=== PATIENT | female | born 1985 | race Caucasian/White ===

== ENCOUNTER 2019-11-11 10:24 | Emergency (ER) | payer SELFPAY ==
[2019-11-11 10:27] VITALS: BP 138/91; PULSE 111; RESP 16; TEMP 37.7; O2SAT 96; BMI 37.8
--- NOTE | 2019-11-11 10:27 | W.ED.DENTAL ---
HPI - Dental/Oral General: Chief complaint: Dental/Oral Stated complaint: DENTAL PAIN Time Seen by Provider: 11/11/19 10:27 Source: patient Mode of arrival: ambulatory Limitations: no limitations History of Present Illness: HPI Narrative: Patient comes in today for complaints of right upper dental pain. Patient has some mild facial swelling. Patient appears well. Patient appears in mild pain. Review of Systems General: Reports: 10 or more systems reviewed and unremarkable except in HPI and below ENMT: Reports: dental pain PFSH ED PFSH: Social History Smoking and tobacco status: current every day smoker Physical Exam Const: COMMON NORMALS: no acute distress and patient oriented x3 GENERAL APPEARANCE: cooperative HENMT: COMMON NORMALS: normocephalic, TM's normal bilaterally and Normal external nose present HEAD & SCALP: normal to inspection and normocephalic NOSE: Normal external nose present TYMPANIC MEMBRANE: TM's normal bilaterally MOUTH: other (Dental abscess noted to the first molar upper right.) THROAT: posterior oropharynx normal Eye: GENERAL EYE: appearance normal, both eyes and all related structures Neck/C-Spine: COMMON NORMALS: full ROM Lymph: LYMPHATIC: no lymphadenopathy noted Chest: COMMONS NORMALS: normal inspection of the chest Resp: COMMON NORMALS: normal respiratory effort EFFORT & INSPECTION: Yes able to speak in complete sentences Cardio: COMMON NORMALS: regular rate and regular rhythm RATE: regular rate RHYTHM: regular rhythm GI: COMMON NORMALS: non-tender Back/Pelvis: COMMON NORMALS: thoracic and lumbar spine normal to inspection Extremity: COMMON NORMALS: normal to inspection Neuro: COMMON NORMALS: patient oriented x3 and moves all extremities Psych: COMMON NORMALS: mental status grossly normal and cooperative Skin: COMMON NORMALS: no rashes or lesions noted GENERAL SKIN EXAM: no rashes or lesions noted Course Vital Signs: Vital signs: Vital Signs Temperature 99.8 F H 11/11/19 10:27 Pulse Rate 111 H 11/11/19 10:27 Respiratory Rate 16 11/11/19 10:27 Blood Pressure 138/91 11/11/19 10:27 Pulse Oximetry 96 11/11/19 10:27 MDM - Dental/Oral MDM Narrative: Medical decision making narrative: Patient comes in today for complaints of dental pain. On exam patient has some swelling to the right facial cheek and some dental pain with an abscess to the right upper first molar area. Posterior pharynx is pink and moist with open airway. Differential diagnosis includes floor mouth cellulitis, dental abscess, dental won, dental decay. Reviewed exam with patient with recommendations for treatment and need for follow-up with dentist. Patient reported understanding and agreed to plan. Discharge Plan Discharge Patient Disposition: Home, Self-Care Clinical Impression: Dental abscess Condition: Stable Prescriptions: New Lidocaine Viscous 2 % solution 10 ml MUCOUS MEM Q3H PRN (Reason: pain) Qty: 100 RF: 0 amoxicillin 500 mg capsule 500 mg PO BID 10 Days Qty: 20 RF: 0 acetaminophen-codeine 300-30 mg tablet 1 tab PO Q8H PRN (Reason: pain) Qty: 10 RF: 0 Discharge Orders: Discharge Order (Routine); Ordered 11/11/19 Ordered By: Moshe Roach Discharge Diet: Usual diet Discharge Activity: Increase activity as tolerated Patient Instructions: Dental Abscess (ED) Activity Restrictions/Additional Instructions: Good oral care. Medications as directed. Follow-up with dentist. Return to the ER for worsening symptoms or new concerns. 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
[2019-11-11] MEDS: acetaminophen 500 mg Tablet 1000 MG PO (10:35)
[2019-11-11] MEDS: amoxicillin 500 mg Capsule 1000 MG PO (10:47)
[2019-11-11] MEDS: lidocaine 2% viscous 15 mL UDC MUCOUS MEM (10:48)
[2019-11-11 10:57] VITALS: BP 130/70; PULSE 100; RESP 18; O2SAT 98
== END 2019-11-11 10:55 | disposition home or self-care (01) ==
PROVIDERS: Emergency Provider Nurse Practitioner Family
DX: K04.7 Periapical abscess without sinus (principal); F17.210 Nicotine dependence, cigarettes, uncomplicated
CPT/HCPCS: 12345; 99281; 99283

== ENCOUNTER → 2020-05-18 15:39 | Outpatient (BNVA) | payer SELFPAY | PROVIDERS: Visit Provider Nurse Practitioner Family | DX: Z20.828 Contact with and (suspected) exposure to other viral communicable diseases (principal); J06.9 Acute upper respiratory infection, unspecified | CPT/HCPCS: 87635 ==

== ENCOUNTER 2020-10-17 01:56 | Emergency (ER) | payer SELFPAY ==
[2020-10-17 02:00] VITALS: BP 144/83; PULSE 104; RESP 18; TEMP 36.7; O2SAT 100; BMI 37.2
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
[2020-10-17] MEDS: HYDROcodone-acetaminophen 5-325 mg Tablet 1 TAB PO (02:20)
[2020-10-17 02:24] VITALS: BP 128/80; PULSE 78; RESP 17; TEMP 36.6; O2SAT 99
== END 2020-10-17 02:25 | disposition home or self-care (01) ==
PROVIDERS: Emergency Provider Emergency Medicine
DX: S60.222A Contusion of left hand, initial encounter (principal); F17.210 Nicotine dependence, cigarettes, uncomplicated; W22.8XXA Striking against or struck by other objects, initial encounter
CPT/HCPCS: 73130; 99283

== ENCOUNTER 2020-10-24 05:21 | Emergency (ER) | payer SELFPAY ==
[2020-10-24 05:30] VITALS: BP 168/129; PULSE 118; RESP 22; TEMP 36.6; O2SAT 98; BMI 35.3
[2020-10-24] MEDS: clindamycin 150 mg Capsule 300 MG PO (05:59)
[2020-10-24] MEDS: ketorolac 10 mg Tablet PO (05:59)
[2020-10-24 06:02] VITALS: RESP 22; TEMP 36.6; O2SAT 98
--- NOTE | 2020-10-24 18:31 | W.ED.GENADLT ---
HPI - General Adult General: Chief complaint: General Medical Stated complaint: Absess busted in her mouth Time Seen by Provider: 10/24/20 05:35 History of Present Illness: HPI narrative: 35-year-old female presents at 5 in the morning for mouth pain. She states an abscess busted in my mouth last night and it was really gross . She has another abscess developing on the right upper side in her mouth. She also complains of spider bite to her left anterior leg that has a foul odored drainage. Onset (ago): hour(s) Location: head Radiation: non-radiation Severity: moderate Associated symptoms: Reports headache(s), nausea and rash; Deny chest pain, confusion, dyspnea, fevers/chills, palpitations, short of breath or vomiting Review of Systems Const: Denies: fever(s) or chills Card: Denies: chest pain or palpitations Resp: Denies: dyspnea GI: Reports: nausea; Denies: vomiting Skin/Breast: Reports: rash Neuro: Reports: headache(s); Denies: confusion PFSH ED PFSH: Social History Smoking and tobacco status: current every day smoker Female Reproductive History: Date of last menstrual period: 10/22/20 Physical Exam Const: COMMON NORMALS: patient oriented x3 and alert GENERAL APPEARANCE: cooperative and disheveled HENMT: COMMON NORMALS: normocephalic and Normal external nose present HEAD & SCALP: normocephalic FACE & SINUS: normal facial exam NOSE: Normal external nose present TEETH & GINGIVA: Yes abnormal tooth and associated gingiva OTHER: Exam of the mouth reveals a lower left mandible dental abscess that appears to be ruptured, with minimal redness, and no drainage. It also reveals a right upper mouth maxillary abscess that is not pointing. Eye: COMMON NORMALS: Equal, round and reactive pupils present PUPIL: Yes Equal, round and reactive pupils present Neuro: COMMON NORMALS: patient oriented x3 SENSORIUM/ORIENTATION: Yes alert Skin: NARRATIVE SKIN EXAM: Ulceration to left anterior leg with focal necrosis. Borders are clean. Minimal erythema. No drainage currently. Course Vital Signs: Vital signs: Vital Signs Temperature 97.9 F 10/24/20 06:02 Pulse Rate 118 H 10/24/20 05:30 Respiratory Rate 22 H 10/24/20 06:02 Blood Pressure 168/129 10/24/20 05:30 Pulse Oximetry 98 10/24/20 06:02 Discharge Plan Discharge Patient Disposition: Home Clinical Impression: Abscess, dental, Cellulitis and abscess of left leg Condition: Stable Prescriptions: New ketorolac 10 mg tablet 10 mg PO TID PRN (Reason: pain) Qty: 10 RF: 0 clindamycin HCl 300 mg capsule 300 mg PO Q6H 10 Days Qty: 40 RF: 0 Discontinued naproxen [Naprosyn] 500 mg tablet 500 mg PO BID PRN (Reason: pain) Qty: 20 RF: 0 No Action hydrocodone-acetaminophen 5-325 mg tablet 1 tab PO Q6H PRN (Reason: pain) Qty: 14 RF: 0 Discharge Orders: Discharge ED (Routine); Ordered 10/24/20 Ordered By: Dmitri Lane Patient Instructions: Dental Abscess (ED), Abscess (ED) Activity Restrictions/Additional Instructions: Return for fever greater than 100 despite 2-3 doses of antibiotics, worsening pain or swelling despite treatment, vomiting liquids or medications, other concerning symptoms. Coding Level of Care Code ED Asbestos Siding Mechanic for Felix Fwd Exam Expanded Problem Focused
== END 2020-10-24 06:02 | disposition home or self-care (01) ==
PROVIDERS: Emergency Provider Emergency Medicine
DX: K04.7 Periapical abscess without sinus (principal); L03.116 Cellulitis of left lower limb; R51.9 Headache, unspecified; R11.0 Nausea; R21 Rash and other nonspecific skin eruption; F17.210 Nicotine dependence, cigarettes, uncomplicated
CPT/HCPCS: 99283

== ENCOUNTER → 2021-01-04 10:11 | Outpatient (BNVA) | payer OTHER, SELFPAY | PROVIDERS: Visit Provider Nurse Practitioner Family | DX: Z20.822 Contact with and (suspected) exposure to COVID-19 (principal) | CPT/HCPCS: 87635 ==

== ENCOUNTER 2021-04-30 23:29 | Emergency (ER) | payer SELFPAY ==
[2021-04-30 23:33] VITALS: BP 167/109; PULSE 159; RESP 26; TEMP 35.9; O2SAT 97; BMI 36.8
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
[2021-05-01] MEDS: iohexol 300 mg/mL 100 mL Btl IV (00:11)
[2021-05-01 00:12] VITALS: RESP 18; O2SAT 100
[2021-05-01] MEDS: HYDROmorphone 1 mg/mL INJ 1 mL IVP (00:12)
[2021-05-01] MEDS: ondansetron 2 mg/ML SDV 2 mL 4 MG IVP (00:12)
[2021-05-01 00:17] VITALS: BP 129/72; PULSE 108; O2SAT 96
[2021-05-01 00:27] LABS: Alanine Aminotransferase 14 U/L (0-33); Albumin Level 4.2 g/dL (3.5-5.2); Alkaline Phosphatase 71 IU/L (35-105); Anion Gap 17.7 (5-19); Aspartate Amino Transferase 16 U/L (0-32); Blood Urea Nitrogen 13 mg/dL (6-20); Calcium 8.7 mg/dL (8.5-10.5); Carbon Dioxide 20 mmol/L (22-29); Chloride 104 mmol/L (98-107); Globulin 3.3 g/dL (1.3-4.6); Glomerular Filtration Rate 80.3 mL/min (90-130); Glucose 87 mg/dL (65-115); Osmolality Calculated 285 mOsm/kg (285-295); Potassium 3.7 mmol/L (3.5-5.1); Sodium 138 mmol/L (136-145); Total Bilirubin 0.2 mg/dL (0.15-1.2); Total Protein 7.5 g/dL (6.6-8.7)
[2021-05-01 00:28] LABS: Basophils # 0.1 10^3/uL (0.0-0.1); Eosinophils # 0.2 10^3/uL (0.0-0.8); Eosinophils % 1.9 %; Hematocrit 35.6 % (37.0-47.0); Hemoglobin 10.4 g/dL (11.5-15.3); Lymphocytes # 2.1 10^3/uL (0.8-4.8); Lymphocytes % 20.3 %; Mean Corpuscular HGB Conc 29.2 g/dL (30.0-36.0); Mean Corpuscular Hemoglobin 22.7 pg (28.0-34.0); Mean Corpuscular Volume 77.6 fl (81-99); Mean Platelet Volume 9.3 fL (7.4-10.4); Monocytes # 0.7 10^3/uL (0.2-0.9); Monocytes % 6.5 %; Neutrophils # 7.39 10^3/uL (1.8-7.7); Neutrophils % 70.1 %; Nucleated Red Blood Cells % 0 %; Platelet Count 506 10^3/cmm (130-400); Red Blood Count 4.59 10^6/uL (4.1-5.3); Red Cell Distribution Width 18.7 % (12.1-15.1); White Blood Count 10.6 10^3/uL (4.0-10.0)
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
[2021-05-01 01:02] VITALS: BP 130/82; PULSE 109; O2SAT 97
[2021-05-01 01:40] VITALS: BP 137/77; PULSE 107; RESP 24; O2SAT 97
== END 2021-05-01 01:42 | disposition home or self-care (01) ==
PROVIDERS: Emergency Provider Emergency Medicine
DX: S01.01XA Laceration without foreign body of scalp, initial encounter (principal); F17.210 Nicotine dependence, cigarettes, uncomplicated; V09.20XA Pedestrian injured in traffic accident involving unspecified motor vehicles, initial encounter
CPT/HCPCS: 12002; 70450; 71045; 72125; 74177; 80053; 85025; 96374; 96375; 99283; J1170; J2405; Q9967

== ENCOUNTER 2021-05-08 11:32 | Emergency (ER) | payer SELFPAY ==
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
[2021-05-08 11:59] VITALS: BP 150/89; PULSE 82; RESP 16; TEMP 36.8; O2SAT 100
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
[2021-05-08 12:56] VITALS: BP 117/66; PULSE 79; RESP 16; TEMP 36.7; O2SAT 97
--- NOTE | 2021-05-08 13:49 | PC.NURSE ---
pt gettting agitates and irritated and is wanting to leave. Radha, PROJECT COACH advised and pt given an AMA form to sign.
== END 2021-05-08 13:51 | disposition left against medical advice (07) ==
PROVIDERS: Emergency Provider Physician Assistant
DX: G44.309 Post-traumatic headache, unspecified, not intractable (principal); F07.81 Postconcussional syndrome; F17.210 Nicotine dependence, cigarettes, uncomplicated; Z53.29 Procedure and treatment not carried out because of patient's decision for other reasons
CPT/HCPCS: 70450; 99282

== ENCOUNTER 2023-10-13 08:11 | Emergency (ER) | payer MEDICAID, SELFPAY ==
[2023-10-13 08:23] VITALS: BP 131/91; PULSE 83; RESP 15; TEMP 36.9; O2SAT 98
--- NOTE | 2023-10-13 08:33 | W.ED.SKABFB ---
HPI - Skin/Abscess/Foreign Bdy General: Chief complaint: Skin/Abscess/Foreign Body Stated complaint: pain on bottom Time Seen by Provider: 10/13/23 08:19 Source: patient Mode of arrival: ambulatory Limitations: no limitations History of Present Illness: 38-year-old female states that she had had a what she thought was a mole to her buttocks it has been there for years she states that it is enlarged and starting to cause some discomfort and wanted to be checked out. She denies any drainage or bleeding she denies any fevers. Associated symptoms: Deny chills, fever(s), nausea or vomiting Review of Systems Const: Denies: fever(s) or chills ENMT: Denies: throat pain or dental pain Card: Denies: chest pain Resp: Denies: dyspnea GI: Denies: abdominal pain, nausea, vomiting or diarrhea Musc: Denies: neck pain or back pain Skin/Breast: Denies: rash Neuro: Denies: headache(s) PFSH ED PFSH: Medical History Psychiatric care Smoker Social History Smoking and tobacco/nicotine status: current every day tobacco/nicotine user Physical Exam Const: COMMON NORMALS: no acute distress, patient oriented x3 and healthy appearing HENMT: COMMON NORMALS: normocephalic and atraumatic HEAD & SCALP: normocephalic and atraumatic Eye: COMMON NORMALS: conjunctivae normal CONJUNCTIVA: Yes conjunctivae normal Neck/C-Spine: COMMON NORMALS: full ROM and supple Chest: COMMONS NORMALS: normal inspection of the chest Resp: COMMON NORMALS: normal respiratory effort Extremity: COMMON NORMALS: normal to inspection and full ROM Neuro: COMMON NORMALS: patient oriented x3, moves all extremities and no focal motor deficits Psych: COMMON NORMALS: mental status grossly normal, Normal thought process present and cooperative THOUGHT PROCESS: Normal thought process present Skin: NARRATIVE SKIN EXAM: Skin tag is noted to buttocks no signs of infection no abscess formation Course Vital Signs: Vital signs: Vital Signs Temperature 98.5 F 10/13/23 08:23 Pulse Rate 83 10/13/23 08:23 Respiratory Rate 15 10/13/23 08:23 Blood Pressure 131/91 10/13/23 08:23 Pulse Oximetry 98 10/13/23 08:23 Oxygen Delivery Me thod Room Air 10/13/23 08:23 MDM - Skin/Abscess/Foreign Bdy Medicial Decision Making Patient presents here with a skin tag to her buttocks she has no signs of infection she is to follow-up with her PCP or dermatology she stable for discharge Medical Records I reviewed the patient's medical records. No radiology studies performed this visit Discharge Plan Discharge Patient Disposition: Home Clinical Impression: Skin tag Condition: Stable Prescriptions: No Action propranolol 20 mg tablet 20 mg PO BID PRN (Reason: anxiety) Qty: 60 2RF trazodone 100 mg tablet 200 mg PO .HS PRN (Reason: insomnia) Qty: 60 2RF fluoxetine 40 mg capsule 80 mg PO DAILY Qty: 60 2RF bupropion HCl [Wellbutrin XL] 150 mg tablet extended release 24 hr 150 mg PO QAM Qty: 30 2RF Discharge Orders: Discharge ED (Routine); Ordered 10/13/23 Ordered By: Kevin Jones Referrals: Christie Robles DO [Physician] - 1-3 days Discharge Diet: Advance as tolerated Discharge Activity: Resume usual activity Activity Restrictions/Additional Instructions: Presents here with a skin tag also called acrochordon. Skin tags are usually harmless there is no signs of any infection. You are to follow-up with your primary care doctor or information assurance return if increasing pain fever or drainage. Coding Level of Care Code ED Sales Designer for Felix Greenfield
[2023-10-13 08:54] VITALS: BP 131/91; PULSE 83; RESP 18; O2SAT 96
--- NOTE | 2023-10-25 16:08 | DCPLANNER ---
Message sent to Dermatology for a follow up on a skin tag.
== END 2023-10-13 08:56 | disposition home or self-care (01) ==
PROVIDERS: Emergency Provider Emergency Medicine
DX: L91.8 Other hypertrophic disorders of the skin (principal); Z72.0 Tobacco use
CPT/HCPCS: 99281

== ENCOUNTER 2023-11-10 07:24 | Emergency (ER) | payer MEDICAID, SELFPAY ==
[2023-11-10 07:30] VITALS: BP 117/82; PULSE 93; RESP 18; TEMP 36.7; O2SAT 92; BMI 35.3
[2023-11-10 07:35] VITALS: BP 117/82; PULSE 93; RESP 18; TEMP 36.7; O2SAT 92
--- NOTE | 2023-11-10 08:02 | ED_ITS ---
HPI - Dental/Oral 2 General: Chief complaint: Dental/Oral Stated complaint: left pointer finger pain, right side mouth pain Time Seen by Provider: 11/10/23 07:31 Source: patient Mode of arrival: ambulatory History of Present Illness: 38-year-old female presents to the emerg ency room complaining of pain and swelling in the right maxillary area she has a bad tooth she has made an appointment to see a dentist but is not able to get in for a couple of weeks. Denies fever MD Complaint: tooth pain Teeth map: 1. Onset (ago): day(s) Duration: constant Relieving factors: nothing Exacerbating factors: nothing Context: history of dental caries Associated symptoms: Denies fever(s) Review of Systems 2 Const: Denies: fever(s) or chills Card: Denies: chest pain Resp: Denies: dyspnea GI: Denies: abdominal pain : Denies: dysuria, urinary frequency or urinary urgency Musc: Denies: neck pain or back pain Skin/Breast: Denies: rash PFSH ED 2 PFSH: Medical History Psychiatric care Smoker Social History Smoking and tobacco/nicotine status: current every day tobacco/nicotine user Physical Exam 2 Const: GENERAL APPEARANCE: cooperative and comfortable O RIENTATION/CONSCIOUSNESS: Yes awake HENMT: COMMON NORMALS: normocephalic, atraumatic and hearing grossly normal bilaterally HEAD & SCALP: normocephalic and atraumatic Resp: COMMON NORMALS: normal respiratory effort, No retractions, No use of accessory muscles and clear to auscultation bilaterally AUSCULTATION: clear to auscultation bilaterally Cardio: COMMON NORMALS: regular rate, regular rhythm and No murmurs present (Cardio) RATE: regular rate RHYTHM: regular rhythm Extremity: COMMON NORMALS: normal to inspection, capillary refill normal, no clubbing, cyanosis or edema, no calf tenderness and no pedal edema OTHER: Paronychia of the right index finger. Skin: COMMON NORMALS: no rashes or lesions noted GENERAL SKIN EXAM: no rashes or lesions noted Procedures Abscess I/D Site: upper extremity Side (if applicable): right (Index finger) Technique: other (Mckeon of an 18-gauge needle) Amount of fluid expressed (mL): 1 Packing used?: none Course 2 Vital Signs: Vital signs: Vital Signs Temperature 98.1 F 11/10/23 07:35 Pulse Rate 89 11/10/23 08:22 Respiratory Rate 18 11/10/23 08:22 Blood Pressure 117/82 11/10/23 07:35 Pulse Oximetry 97 11/10/23 08:22 Oxygen Delivery Me thod Room Air 11/10/23 07:35 MDM - Dental/Oral Medical Decision Making Paronychia incised and drained about 1 mL of purulent fluid expressed. For the tooth infection started Augmentin 875 1 p.o. twice daily x 10 days follow-up with dentist as soon as she is able. Medical Records I reviewed the patient's medical records. Lab Data I reviewed the patient's lab results. No radiology studies performed this visit Discharge Plan Discharge Patient Disposition: Home Clinical Impression: Dental abscess, Paronychia of finger of right hand Condition: Stable Prescriptions: New amoxicillin-pot clavulanate 500-125 mg tablet 1 tab PO TID Qty: 30 0RF diclofenac sodium 75 mg tablet,delayed release (DR/EC) 75 mg PO Q12H PRN (Reason: pain) Qty: 20 0RF No Action propranolol 20 mg tablet 20 mg PO BID PRN (Reason: anxiety) Qty: 60 2RF trazodone 100 mg tablet 200 mg PO .HS PRN (Reason: insomnia) Qty: 60 2RF fluoxetine 40 mg capsule 80 mg PO DAILY Qty: 60 2RF bupropion HCl [Wellbutrin XL] 150 mg tablet extended release 24 hr 150 mg PO QAM Qty: 30 2RF Discharge Orders: Discharge ED (Routine); Ordered 11/10/23 Ordered By: Guevara Franklin Discharge Diet: Soft Mechanical Discharge Activity: Increase activity as tolerated Patient Instructions: Dental Abscess (ED), Opioid Safety, Pain Management Activity Restrictions/Additional Instructions: Thank you for choosing [facility] for your healthcare needs today. It is very important that you follow up as instructed or that you return to the Emergency Department should you have concerns or if your condition changes or worsens in any way. Follow-up with dentistry soon as you are able Coding Level of Care Code ED Emergency Communications Dispatcher for Felix Greenfield
[2023-11-10 08:22] VITALS: PULSE 89; RESP 18; O2SAT 97
== END 2023-11-10 08:22 | disposition home or self-care (01) ==
PROVIDERS: Emergency Provider Family Medicine
DX: K04.7 Periapical abscess without sinus (principal); L03.011 Cellulitis of right finger; Z72.0 Tobacco use
CPT/HCPCS: 99283

== ENCOUNTER 2023-12-15 09:54 | Emergency (ER) | payer MEDICAID, SELFPAY ==
[2023-12-15 10:21] VITALS: BP 119/86; PULSE 78; RESP 18; TEMP 37.1; O2SAT 97; BMI 32.5
--- NOTE | 2023-12-15 10:26 | CT_ITS ---
WS: [id number] CT ABDOMEN AND PELVIS WITH CONTRAST HISTORY: abdominal pain TECHNIQUE: Imaging performed of the abdomen and pelvis with IV contrast. Single phase imaging of the abdomen. Coronal and sagittal reformats are submitted. All CT scans at [facility] use at [address] one of these dose optimization techniques: automated exposure control; mA and/or kV adjustment per patient size (includes targeted exams where dose is matched to clinical indication); or iterative re construction. IV CONTRAST: Omnipaque 350; 100 mL IV. Oral contrast: No DLP: 685.28 mGy.cm COMPARISON: Gallbladder ultrasound 12/19/2017, CT 05/01/2021 Lower thorax: Lung bases are clear. Heart is normal size. No hiatal hernia. Liver/biliary system: Normal size with no intrahepatic dilatation. Normal common bile duct. Gallbladder: Gallbladder is slightly contracted. There is diffuse mild gallbladder wall thickening wi th wall enhancement. Patient has known cholelithiasis as described on 12/19/2017. Pancreas: Normal size pancreas and pancreatic duct. No adjacent inflammation. Spleen: Normal size spleen. No mass or infarct. Adrenal glands: Normal. Right kidney: Normal. Left kidney: Normal. Aorta: Normal. Lymphadenopathy: None. Free fluid: None. GI tract: Unremarkable. Normal appendix. Abdominal wall: Fat containing umbilical hernia. Pelvis: No free fluid or adenopathy within the pelvis. Bones: Bilateral pars defects at L5. Less than 2 mm [address] of L5. CT/CT abdomen pelvis w con* [id number] IMPRESSION: 1. Mildly contracted gallbladder with diffuse gallbladder wall thickening and enhancement. Patient has known cholelithiasis. Findings are suspicious for acut e cholecystitis. Consider follow-up gallbladder ultrasound at this time. 2. Normal common bile duct. 3. Normal appendix.
--- NOTE | 2023-12-15 10:27 | W.ED.ABDPA2 ---
HPI - Abdominal Pain General: Chief Complaint: Abdominal Pain Stated Complaint: abd pains, lots of bleeding Time Seen by Provider: 12/15/23 10:00 Source: patient Mode of arrival: ambulatory Limitations: no limitations History of Present Illness: Patient is a 38-year-old female presents to ED today with a complaint of abnormal vaginal bleeding and diffuse abdominal pain. Patient states she has her menstrual cycles like clockwork and states she started her menstrual cycle on 11/30 and lasted through 12/05. She had two days of no bleeding but then states she began having vaginal bleeding again on 12/07 which has since continued. States bleeding is not enough to where she has had to use a tampon but enough that she is having to wear a small panty liner. States her menstrual cycles are usually very heavy and painful. States her main concern is her diffuse abdominal pain. No N/V/D/C. States she had a pelvic exam and PAP smear performed at the [facility] yesterday. States she is UTD on STD testing through the health department and denies vaginal discharge/odor/dyspareunia. She is status post tubal ligation. States mother due to breast cancer at 52-she is not sure when she started menopause. MD elicited complaint: abdominal pain Pertinent past history: none Onset (ago): day(s) Pain Consistency: constant Location: Diffuse Severity: moderate Radiation: none Migration to: no migration Exacerbating factors: nothing Relieving factors: nothing Associated Symptoms: Denies change in bowel habits, chills, diarrhea, dysuria, fever(s), nausea and vomiting Related Data: Patient : No Review of Systems Const: Denies: fever(s), chills, body aches, fatigue or malaise Card: Denies: chest pain Resp: Denies: dyspnea GI: Reports: abdominal pain; Denies: nausea, vomiting, diarrhea or change in bowel habits : Reports: vaginal bleeding and metrorrhagia; Denies: flank pain, difficulty voiding, dysuria, urinary frequency, urinary urgency, urinary hesitancy, genital lesions, genital pruritis, vaginal odor or vaginal discharge Musc: Denies: neck pain, back pain, extremity pain or joint pain Skin/Breast: Denies: rash Neuro: Denies: headache(s), numbness in extremities, weakness in extremities, sensory changes or dizziness PFS ED PFSH: Medical History Psychiatric care Smoker Social History Smoking and tobacco/nicotine status: current every day tobacco/nicotine user Physical Exam Const: COMMON NORMALS: no acute distress, patient oriented x3, no limitations, alert and well nourished GENERAL APPEARANCE: cooperative ORIENTATION/CONSCIOUSNESS: Yes awake, Yes oriented to person, Yes oriented to place and Yes oriented to time Eye: COMMON NORMALS: no scleral icterus Resp: COMMON NORMALS: normal respiratory effort and clear to auscultation bilaterally AUSCULTATION: clear to auscultation bilaterally Cardio: COMMON NORMALS: regular rate and regular rhythm RATE: regular rate RHYTHM: regular rhythm GI: COMMON NORMALS: Normal to inspection, nondistended, normoactive bowel sounds present, Soft to palpation, No hepatosplenomegaly present and no masses INSPECTION: Yes normal to inspection AUSCULTATION: Yes normoactive bowel sounds PALPATION: Yes Soft to palpation, Yes Tenderness to palpation present (GI) (reporting diffuse pain), No Guarding due to palpation present (GI), No Rigid due to palpation and Yes No hepatosplenomegaly present : COMMON NORMALS: Yes no CVA tenderness BLADDER/KIDNEY EXAM: Yes no CVA tenderness OTHER: pelvic exam deferred as she states she just had one yesterday through the health dept Back/Pelvis: COMMON NORMALS: no CVA tenderness Extremity: GENERAL: Yes normal exam except as noted Neuro: CHLOE COMA SCALE: document GCS findings Bayard coma scale eye opening: Spontaneous Bayard coma scale verbal response: Orientated Bayard coma scale motor response: Obey commands Chloe coma scale total score: 15 COMMON NORMALS: patient oriented x3 SENSORIUM/ORIENTATION: Yes alert, Yes oriented to person, Yes oriented to place and Yes oriented to time Skin: COMMON NORMALS: no rashes or lesions noted GENERAL SKIN EXAM: no rashes or lesions noted Course Vital Signs: Vital signs: Vital Signs Temperature 98.8 F 12/15/23 10:21 Pulse Rate 78 12/15/23 10:21 Respiratory Rate 18 12/15/23 10:21 Blood Pressure 119/86 12/15/23 10:21 Pulse Oximetry 97 12/15/23 10:21 MDM - Abdominal Pain Medical Decision Making Patient here with complaints of abdominal pain and irregular vaginal bleeding. She arrives in no acute distress with stable vital signs. Blood work shows a microcytic anemia with a hemoglobin of 8.7. Last previous was back in 2020. Most likely microcytic anemia secondary to blood loss in a menstruating female. She is not currently having any heavy menstrual bleeding. Remainder of her blood work is unremarkable. Her first UA was grossly contaminated so this was repeated and does not appear infected. CT scan of her abdomen was essentially unremarkable apart from abnormal findings related to her gallbladder. They had recommended ultrasound imaging so this was obtained. Ultrasound showing findings consistent with diffuse adenomyomatosis. She had similar findings back in 2018. She can follow-up with primary care for this. According to up-to-date guidelines this does not require routine surveillance or cholecystectomy. She states she does have an appointment with [facility] in approximately 2 weeks but she can discuss her irregular bleeding with. Return precautions given. Lab Data 12/15/23 11:07 12/15/23 11:07 Labs/Radiology: Radiology Impressions Abdomen/Pelvis CT 12/15/23 10:26 IMPRESSION: 1. Mildly contracted gallbladder with diffuse gallbladder wall thickening and enhancement. Patient has known cholelithiasis. Findings are suspicious for acute cholecystitis. Consider follow-up gallbladder ultrasound at this time. 2. Normal common bile duct. 3. Normal appendix. Gallbladder Ultrasound 12/15/23 12:06 IMPRESSION: 1. Contracted gallbladder with diffuse echogenic wall thickening. No definite stones are identified. These findings are most consistent with diffuse adenomyomatosis. Early changes of adenomyomatosis was also noted on a prior ultrasound from 12/19/2017. 2. No bile duct dilatation. Laboratory Results WBC 8.28 10^3/uL (3.29-11.43) 12/15/23 11:07 RBC 3.89 10^6/uL (3.85-5.65) 12/15/23 11:07 Hgb 8.70 g/dL (11.27-16.99) L 12/15/23 11:07 Hct 29.8 % (36-47) L 12/15/23 11:07 MCV 76.6 fl (85-98) L 12/15/23 11:07 MCH 22.4 pg (27-33) L 12/15/23 11:07 MCHC 29.2 g/dL (30-55) L 12/15/23 11:07 RDW 17.5 % (12.1-15.1) H 12/15/23 11:07 Plt Count 496 10^3/cmm (157-399) H 12/15/23 11:07 MPV 9.3 fL (7.4-10.4) 12/15/23 11:07 Neut % (Auto) 67.2 % 12/15/23 11:07 Lymph % (Auto) 20.8 % 12/15/23 11:07 [place] % (Auto) 7.4 % 12/15/23 11:07 Eos % (Auto) 3.1 % 12/15/23 11:07 Baso % (Auto) 1.1 % 12/15/23 11:07 Neut # (Auto) 5.57 10^3/uL (1.8-7.7) 12/15/23 11:07 Lymph # (Auto) 1.7 10^3/uL (0.8-4.8) 12/15/23 11:07 [place] # (Auto) 0.6 10^3/uL (0.2-0.9) 12/15/23 11:07 Eos # (Auto) 0.3 10^3/uL (0.0-0.8) 12/15/23 11:07 Baso # (Auto) 0.1 10^3/uL (0.0-0.1) 12/15/23 11:07 Nucleated RBC % (auto) 0 % 12/15/23 11:07 Nucleated RBCs # 0.0 /100WBC 12/15/23 11:07 Sodium 141 mmol/L (136-145) 12/15/23 11:07 Potassium 4.4 mmol/L (3.5-5.1) 12/15/23 11:07 Chloride 110 mmol/L (98-107) H 12/15/23 11:07 Carbon Dioxide 21 mmol/L (22-29) L 12/15/23 11:07 Anion Gap 14.4 (5-19) 12/15/23 11:07 BUN 13 mg/dL (6-20) 12/15/23 11:07 Creatinine 0.6 mg/dL (0.5-0.9) 12/15/23 11:07 GFR Calculation 110.7 mL/min (90-130) 12/15/23 11:07 Glucose 104 mg/dL (65-115) 12/15/23 11:07 Calculated Osmolality 292 mOsm/kg (285-295) 12/15/23 11:07 Calcium 8.5 mg/dL (8.5-10.5) 12/15/23 11:07 Total Bilirubin 0.2 mg/dL (0.15-1.2) 12/15/23 11:07 AST 13 U/L (0-32) 12/15/23 11:07 ALT 6 U/L (0-33) 12/15/23 11:07 Alkaline Phosphatase 63 U/L (35-105) 12/15/23 11:07 Total Protein 7.4 g/dL (6.6-8.7) 12/15/23 11:07 Albumin 3.9 g/dL (3.5-5.2) 12/15/23 11:07 Globulin 3.5 g/dL (1.3-4.6) 12/15/23 11:07 Lipase 44 U/L (13-60) 12/15/23 11:07 HCG, Qual Negative (Negative) 12/15/23 11:07 Urine Color Yellow (Yellow) 12/15/23 11:17 Urine Appearance Clear (CLEAR) 12/15/23 11:17 Urine pH 5 (5-7) 12/15/23 11:17 Ur Specific [place] 1.025 (1.005-1.030) 12/15/23 11:17 Urine Protein Trace (Negative) 12/15/23 11:17 Urine Glucose (UA) Norm (Normal) 12/15/23 11:17 Urine Ketones Negative (Negative) 12/15/23 11:17 Urine Blood Neg (Negative) 12/15/23 11:17 Urine Nitrate Negative (Negative) 12/15/23 11:17 Urine Bilirubin Neg (Negative) 12/15/23 11:17 Urine Urobilinogen Norm mg/dL (Negative) 12/15/23 11:17 Ur Leukocyte Esterase 1+ (Negative) H 12/15/23 11:17 Urine RBC 15-25 /hpf (0-2) H 12/15/23 10:21 Urine WBC 25-40 /hpf (0-5) H 12/15/23 10:21 Ur Squamous Epith Cells 15-25 /hpf (0-5) H 07/26/24 10:21 Calcium Oxalate Crystal 0-4 /hpf H 12/15/23 10:21 Amorphous Sediment Not Reportable 12/15/23 10:21 Urine Bacteria 1+ /hpf (NONE) H 12/15/23 10:21 Urine Mucus 1+ /hpf 12/15/23 10:21 All radiology interpretation(s) finalized by discharge Discharge Plan Discharge Patient Disposition: Home Clinical Impression: Adenomyomatosis of gallbladder, Irregular uterine bleeding Condition: Stable Prescriptions: No Action No Known Home Medications Discharge Orders: Discharge ED (Routine); Ordered 12/15/23 Ordered By: Radha Blood Activity Restrictions/Additional Instructions: As we discussed please follow-up with [facility] at your currently scheduled appointment. You may return to the emergency department for worsening vaginal bleeding, lightheadedness, dizziness, severe pain, or any other concerns you may have. We discussed the findings of your gallbladder today. You may follow-up with your primary care provider for this. Coding Level of Care Code ED Cotton Stomper for Felix Greenfield
[2023-12-15 10:46] LABS: Add Urine Microscopic? YES; Bilirubin Urine Neg (Negative); Blood Urine 3+ (Negative); Glucose Urine UA Norm (Normal); Ketones Urine Negative (Negative); Leukocyte Esterase Urine 2+ (Negative); Nitrate Urine Negative (Negative); Protein Urine Neg (Negative); RBC Urine 15-25 /hpf (0-2); Squamous Epithelial Cell Urine 15-25 /hpf (0-5); Urine Appearance Cloudy (CLEAR); Urine Color Yellow (Yellow); Urobilinogen Urine 1 mg/dL (Negative); WBC Urine 25-40 /hpf (0-5); pH Urine 5 (5-7)
[2023-12-15 10:47] LABS: Add Urine Culture? No; Bacteria Urine 1+ /hpf; Calcium Oxalate Crystals Urine 0-4 /hpf; Mucus Urine 1+ /hpf
--- NOTE | 2023-12-15 10:54 | PC.PHAR ---
PT STATES TAKES NO MEDICATIONS. ALSO STATES NO OPIATES, BENZODIAZEPINES OR NARCOTICS OF ANY KIND. PLEASE
[2023-12-15 11:13] LABS: Basophils # 0.1 10^3/uL (0.0-0.1); Basophils % 1.1 %; Eosinophils # 0.3 10^3/uL (0.0-0.8); Eosinophils % 3.1 %; Hematocrit 29.8 % (36-47); Lymphocytes # 1.7 10^3/uL (0.8-4.8); Lymphocytes % 20.8 %; Mean Corpuscular HGB Conc 29.2 g/dL (30-55); Mean Corpuscular Hemoglobin 22.4 pg (27-33); Mean Corpuscular Volume 76.6 fl (85-98); Mean Platelet Volume 9.3 fL (7.4-10.4); Monocytes # 0.6 10^3/uL (0.2-0.9); Monocytes % 7.4 %; Neutrophils # 5.57 10^3/uL (1.8-7.7); Neutrophils % 67.2 %; Nucleated Red Blood Cells % 0 %; Platelet Count 496 10^3/cmm (157-399); Red Blood Count 3.89 10^6/uL (3.85-5.65); Red Cell Distribution Width 17.5 % (12.1-15.1); White Blood Count 8.28 10^3/uL (3.29-11.43)
[2023-12-15 11:33] LABS: HCG, Serum Qual Negative (Negative)
[2023-12-15 11:39] LABS: Alanine Aminotransferase 6 U/L (0-33); Albumin Level 3.9 g/dL (3.5-5.2); Alkaline Phosphatase 63 U/L (35-105); Anion Gap 14.4 (5-19); Aspartate Amino Transferase 13 U/L (0-32); Blood Urea Nitrogen 13 mg/dL (6-20); Calcium 8.5 mg/dL (8.5-10.5); Carbon Dioxide 21 mmol/L (22-29); Chloride 110 mmol/L (98-107); Creatinine Clr Calc Pharmacy 117.8336; Globulin 3.5 g/dL (1.3-4.6); Glomerular Filtration Rate 110.7 mL/min (90-130); Glucose 104 mg/dL (65-115); Lipase 44 U/L (13-60); Osmolality Calculated 292 mOsm/kg (285-295); Potassium 4.4 mmol/L (3.5-5.1); Sodium 141 mmol/L (136-145); Total Bilirubin 0.2 mg/dL (0.15-1.2); Total Protein 7.4 g/dL (6.6-8.7)
[2023-12-15] MEDS: iohexol 350 mg/mL 500 mL Btl (per mL) IV (11:51)
[2023-12-15 11:55] LABS: Charge for UA Resulting for Rev
--- NOTE | 2023-12-15 12:06 | US_ITS ---
WS: [id number] RIGHT UPPER QUADRANT ULTRASOUND HISTORY: abnormal CT findings COMPARISON: 12/19/2017, CT 12/15/2023 Liver: 14.4 cm in length. Normal size liver and echogenicity. No bile duct dilatation or mass. Portal Vein: Normal hepatopetal flow with monophasic waveform. Gallbladder: Abnormal gallbladder. Gallbladder is contracted. There is marked diffuse wall thickening with ringdown artifact. This marked gallbladder wall thickening corresponds to the findings on CT. T his is not edema as suspected on the CT but most likely due to adenomyomatosis. Ringdown artifact and echogenic foci in the wall were also noted on the prior ultrasound from 2017 with marked progression . No stones are identified on today's study. CBD: 0.7 cm Pancreas: Normal size and echogenicity. Right kidney: 11.2 cm in length. Normal size and echogenicity. No hydronephrosis or mass. Aorta and IVC: Unremarkable abdominal aorta and IVC. No ascites. US/US gall bladder [id number] IMPRESSION: 1. Contracted gallbladder with diffuse echogenic wall thickening. No definite stones are identified. These findings are most consistent with diffuse adenomyo matosis. Early changes of adenomyomatosis was also noted on a prior ultrasound from 12/19/2017. 2. No bile duct dilatation.
[2023-12-15 12:08] LABS: Add Urine Microscopic? YES; Bilirubin Urine Neg (Negative); Blood Urine Neg (Negative); Glucose Urine UA Norm (Normal); Ketones Urine Negative (Negative); Leukocyte Esterase Urine 1+ (Negative); Nitrate Urine Negative (Negative); Protein Urine Trace (Negative); Specific Gravity, Urine 1.025 (1.005-1.030); Urine Appearance Clear (CLEAR); Urine Color Yellow (Yellow); Urobilinogen Urine Norm (Negative); pH Urine 5 (5-7)
[2023-12-15 14:06] VITALS: BP 125/83; PULSE 79; O2SAT 97
== END 2023-12-15 14:05 | disposition home or self-care (01) ==
PROVIDERS: Emergency Provider Physician Assistant
DX: K82.8 Other specified diseases of gallbladder (principal); N93.9 Abnormal uterine and vaginal bleeding, unspecified; Z72.0 Tobacco use
CPT/HCPCS: 74177; 76705; 80053; 81001; 81003; 83690; 84703; 85025; 99285; Q9967

== ENCOUNTER 2023-12-19 06:20 | Emergency (ER) | payer BC, MEDICAID, SELFPAY ==
[2023-12-19 06:21] VITALS: BP 136/70; PULSE 87; RESP 16; TEMP 37.2; O2SAT 96; BMI 31.5
--- NOTE | 2023-12-19 06:27 | US_ITS ---
WS: [id number] US transvaginal [id number] HISTORY: vaginal bleeding COMPARISON: None available. Uterus: 7.7 cm x 5.2 cm x 5.1 cm. Normal size anteverted uterus. The myometrium is heterogeneous and slightly lobular. A scar is noted along the anterior lower uterine segment. Endometrium: 0.8 cm. Heterogeneous appearance of the endometrium. Within the central endometrial dione l there are at least 2 areas of increased echogenicity which are suspicious for polyps. On the transv erse imaging the largest focus measuring 7 x 6 x 5 mm towards the LEFT endometrial canal which is pro bably a polyp. There may be an additional polyp or lobulated polyp. Limited evaluation by color Doppl er. Right ovary: 2.5 cm x 1.7 cm x 2.7 cm. Normal size and vascularity, no cystic or solid masses. Left ovary: 3.1 cm x 3.5 cm x 2.3 cm. Normal size and vascularity, no cystic or solid masses. No free fluid in the cul-de-sac. US/US transvaginal [id number] IMPRESSION: 1. Heterogeneous endometrium with lobulated hyperechoic component. Highly susp icious for endometrial polyps. This may be a single lobulated or 2 separate shiva yps. Recommend HOUSE PARENT evaluation. Differential would include retained products of the menses although this is less likely. 2. Heterogeneous enlarged uterus. No discrete fibroid.
--- NOTE | 2023-12-19 06:28 | ED_ITS ---
HPI - Female Genitourinary 2 General: Chief complaint: Vaginal Bleeding Stated complaint: severe bleeding and cramping Time Seen by Provider: 12/19/23 06:22 Source: patient Mode of arrival: ambulatory Limitations: no limitations History of Present Illness: 38-year-old female states that over the last 2 weeks she has been having heavy vaginal bleeding states she has been having abdominal cramping as well it has been diffuse in nature. She denies any fevers or dysuria. She is seen here earlier this week she also has follow-up with [facility] set up in 2 weeks. She rates her pain a 6 out of 10 currently Associated symptoms: Reports abdominal pain; Deny headache(s) or nausea Review of Systems 2 Const: Denies: fever(s), chills, body aches or change in appetite ENMT: Denies: throat pain or dental pain Card: Denies: chest pain Resp: Denies: dyspnea GI: Reports: abdominal pain; Denies: nausea, vomiting or diarrhea : Reports: vaginal bleeding; Denies: dysuria Musc: Denies: neck pain or back pain Skin/Breast: Denies: rash Neuro: Denies: headache(s) PFSH ED 2 PFSH: Medical History Psychiatric care Smoker Social History Smoking and tobacco/nicotine status: current every day tobacco/nicotine user Physical Exam 2 Const: COMMON NORMALS: no acute distress, patient oriented x3 and healthy appearing HENMT: COMMON NORMALS: normocephalic and atraumatic HEAD & SCALP: n ormocephalic and atraumatic Neck/C-Spine: COMMON NORMALS: full ROM and supple Chest: COMMONS NORMALS: normal inspection of the chest Resp: COMMON NORMALS: normal respiratory effort Cardio: COMMON NORMALS: regular rate, regular rhythm and No murmurs present (Cardio) RATE: regular rate RHYTHM: regular rhythm GI: COMMON NORMALS: Normal to inspection, nondistended, normoactive bowel sounds present, Soft to palpation, non-tender and no masses PALPATION: Yes Soft to palpation Extremity: COMMON NORMALS: normal to inspection and full ROM Neuro: COMMON NORMALS: patient oriented x3, moves all extremities and no focal motor deficits Psych: COMMON NORMALS: mental status grossly normal, Normal thought process present and cooperative THOUGHT PROCESS: Normal thought process present Skin: COMMON NORMALS: no rashes or lesions noted and no wounds GENERAL SKIN EXAM: no rashes or lesions noted Course 2 Vital Signs: Vital signs: Vital Signs Temperature 98.9 F 12/19/23 06:21 Pulse Rate 87 12/19/23 06:21 Respiratory Rate 16 12/19/23 06:21 Blood Pressure 136/70 12/19/23 06:21 Pulse Oximetry 96 12/19/23 06:21 Oxygen Delivery Me thod Room Air 12/19/23 06:21 MDM - Female Medical Decision Making Patient presents for vaginal bleeding is been going on for weeks ultrasound showed a possible polyp her hemoglobin stable her vitals here are normal she does have follow-up with [facility] she is to follow-up as scheduled return if worsening she understands agrees to plan. Medical Records I reviewed the patient's medical records. Lab Data I reviewed the patient's lab results. 12/19/23 07:09 12/19/23 07:09 Radiology Impressions Transvaginal US 12/19/23 06:27 IMPRESSION: 1. Heterogeneous endometrium with lobulated hyperechoic component. Highly suspicious for endometrial polyps. This may be a single lobulated or 2 separate polyps. Recommend LINE PALLETIZER evaluation. Differential would include retained products of the menses although this is less likely. 2. Heterogeneous enlarged uterus. No discrete fibroid. Laboratory Results WBC 8.76 10^3/uL (3.29-11.43) 12/19/23 07:09 RBC 3.60 10^6/uL (3.85-5.65) L 12/19/23 07:09 Hgb 8.10 g/dL (11.27-16.99) L 12/19/23 07:09 Hct 28.4 % (36-47) L 12/19/23 07:09 MCV 78.9 fl (85-98) L 12/19/23 07:09 MCH 22.5 pg (27-33) L 12/19/23 07:09 MCHC 28.5 g/dL (30-55) L 12/19/23 07:09 RDW 17.7 % (12.1-15.1) H 12/19/23 07:09 Plt Count 443 10^3/cmm (157-399) H 12/19/23 07:09 MPV 9.9 fL (7.4-10.4) 12/19/23 07:09 Neut % (Auto) 63.0 % 12/19/23 07:09 Lymph % (Auto) 25.8 % 12/19/23 07:09 [place] % (Auto) 6.8 % 12/19/23 07:09 Eos % (Auto) 3.2 % 12/19/23 07:09 Baso % (Auto) 0.9 % 12/19/23 07:09 Neut # (Auto) 5.51 10^3/uL (1.8-7.7) 12/19/23 07:09 Lymph # (Auto) 2.3 10^3/uL (0.8-4.8) 12/19/23 07:09 [place] # (Auto) 0.6 10^3/uL (0.2-0.9) 12/19/23 07:09 Eos # (Auto) 0.3 10^3/uL (0.0-0.8) 12/19/23 07:09 Baso # (Auto) 0.1 10^3/uL (0.0-0.1) 12/19/23 07:09 Nucleated RBC % (auto) 0 % 12/19/23 07:09 Nucleated RBCs # 0.0 /100WBC 12/19/23 07:09 Sodium 139 mmol/L (136-145) 12/19/23 07:09 Potassium 3.6 mmol/L (3.5-5.1) 12/19/23 07:09 Chloride 107 mmol/L (98-107) 12/19/23 07:09 Carbon Dioxide 19 mmol/L (22-29) L 12/19/23 07:09 Anion Gap 16.6 (5-19) 12/19/23 07:09 BUN 14 mg/dL (6-20) 12/19/23 07:09 Creatinine 0.7 mg/dL (0.5-0.9) 12/19/23 07:09 GFR Calculation 92.7 mL/min (90-130) 12/19/23 07:09 Glucose 112 mg/dL (65-115) 12/19/23 07:09 Calculated Osmolality 289 mOsm/kg (285-295) 12/19/23 07:09 Calcium 8.5 mg/dL (8.5-10.5) 12/19/23 07:09 Total Bilirubin 0.2 mg/dL (0.15-1.2) 12/19/23 07:09 AST 15 U/L (0-32) 12/19/23 07:09 ALT < 5 U/L (0-33) 12/19/23 07:09 Alkaline Phosphatase 58 U/L (35-105) 12/19/23 07:09 Total Protein 7.1 g/dL (6.6-8.7) 12/19/23 07:09 Albumin 3.7 g/dL (3.5-5.2) 12/19/23 07:09 Globulin 3.4 g/dL (1.3-4.6) 12/19/23 07:09 All radiology interpretation(s) finalized by discharge Discharge Plan Discharge Patient Disposition: Home Clinical Impression: Vaginal bleeding Condition: Stable Prescriptions: No Action No Known Home Medications Discharge Orders: Discharge ED (Routine); Ordered 12/19/23 Ordered By: Kevin Jones Discharge Diet: Advance as tolerated Discharge Activity: Resume usual activity Patient Instructions: Abnormal (Dysfunctional) Uterine Bleeding (ED) Coding Level of Care Code ED [employer]ofing Sales Representative for Felix Greenfield
[2023-12-19 07:27] LABS: Basophils # 0.1 10^3/uL (0.0-0.1); Basophils % 0.9 %; Eosinophils # 0.3 10^3/uL (0.0-0.8); Eosinophils % 3.2 %; Hematocrit 28.4 % (36-47); Lymphocytes # 2.3 10^3/uL (0.8-4.8); Lymphocytes % 25.8 %; Mean Corpuscular HGB Conc 28.5 g/dL (30-55); Mean Corpuscular Hemoglobin 22.5 pg (27-33); Mean Corpuscular Volume 78.9 fl (85-98); Mean Platelet Volume 9.9 fL (7.4-10.4); Monocytes # 0.6 10^3/uL (0.2-0.9); Monocytes % 6.8 %; Neutrophils # 5.51 10^3/uL (1.8-7.7); Nucleated Red Blood Cells % 0 %; Platelet Count 443 10^3/cmm (157-399); Red Cell Distribution Width 17.7 % (12.1-15.1); White Blood Count 8.76 10^3/uL (3.29-11.43)
[2023-12-19 07:40] LABS: Alanine Aminotransferase < 5 U/L (0-33); Albumin Level 3.7 g/dL (3.5-5.2); Alkaline Phosphatase 58 U/L (35-105); Anion Gap 16.6 (5-19); Aspartate Amino Transferase 15 U/L (0-32); Blood Urea Nitrogen 14 mg/dL (6-20); Calcium 8.5 mg/dL (8.5-10.5); Carbon Dioxide 19 mmol/L (22-29); Chloride 107 mmol/L (98-107); Creatinine Clr Calc Pharmacy 99.4702; Globulin 3.4 g/dL (1.3-4.6); Glomerular Filtration Rate 92.7 mL/min (90-130); Glucose 112 mg/dL (65-115); Osmolality Calculated 289 mOsm/kg (285-295); Potassium 3.6 mmol/L (3.5-5.1); Sodium 139 mmol/L (136-145); Total Bilirubin 0.2 mg/dL (0.15-1.2); Total Protein 7.1 g/dL (6.6-8.7)
[2023-12-19 08:11] LABS: HCG, Serum Qual Negative (Negative)
[2023-12-19 08:16] VITALS: BP 138/74; PULSE 76; O2SAT 99
--- NOTE | 2023-12-20 07:32 | DCPLANNER ---
Message sent to OBGYN for Follow up YANELIS-Vag Bleeding
== END 2023-12-19 08:18 | disposition home or self-care (01) ==
PROVIDERS: Emergency Provider Emergency Medicine
DX: N93.9 Abnormal uterine and vaginal bleeding, unspecified (principal); Z72.0 Tobacco use
CPT/HCPCS: 36415; 76830; 80053; 84703; 85025; 99284

== ENCOUNTER 2024-01-01 08:38 | Outpatient (CLI) | payer BC, MEDICAID, SELFPAY ==
--- NOTE | 2024-01-01 08:40 | MM_ITS ---
WS: [id number] BILATERAL SCREENING DIGITAL TOMOSYNTHESIS MAMMOGRAM WITH CAD HISTORY: SCREENING COMPARISON: None available. Bilateral CC and MLO views with tomosynthesis and synthetic mammography submitted. Computer aided det ection analyzed. Breast composition: There are scattered areas of fibroglandular density. No suspicious masses, microc alcifications or architectural distortion. MM/[place] [id number] IMPRESSION: BI-RADS: 1-Negative FOLLOW UP: 1 Year Follow-up
== END 2024-01-01 08:39 | disposition home or self-care (01) ==
PROVIDERS: Visit Provider Advanced Practice Midwife
DX: Z12.31 Encounter for screening mammogram for malignant neoplasm of breast (principal)
CPT/HCPCS: 77063; 77067

== ENCOUNTER 2024-01-25 07:50 | Day surgery (SDC) | payer BC, MEDICAID, SELFPAY ==
[2024-01-25] VITALS (10 sets, daily range): BP systolic 106–144; BP diastolic 56–83; PULSE 73–90; RESP 12–16; TEMP 36.1–36.7; O2SAT 96–100; BMI 34.4
--- NOTE | 2024-01-25 00:23 | P.HP_ITS ---
Same Day Surgery H&P Indication for Procedure/HPI DATE OF PROCEDURE: January 25, 2024 CHIEF COMPLAINT/INDICATIONFOR SURGICAL PROCEDURE: abnormal uterine bleeding PREOP DIAGNOSIS: abnormal uterine bleeding PLANNED PROCEDURE: Operation Date: 01/25/24 09:30 Proposed Procedures p Hysteroscopy Hysteroscopy w/ Endometrial Sampling 49851, [id number](Not Appli cable) - Bridger Liang MD s Poylpectomy(Not Applicable) - Bridger Liang MD s Placement of Intrauterine Device(Not Applicable) - Bridger Liang MD 38 y.o. started to have daily bleeding in October, occasionally heavy was seen in ER on December 19, 2023; Hgb was 8.1 Medications/Allergies* Allergies/Adverse Reactions Allergy/AdvReac Type Severity Reaction Status Date / Time No Known Allergies Allergy Verified 01/24/24 14:44 Pertinent History/Comorbid Conditions* Medical History Psychiatric care Smoker Family History (Updated 01/16/24 @ 08:32 by Marta Prado LPN) Colon cancer Mother Breast cancer Mother Denies family history of Ovarian cancer Prostate cancer Diabetes Heart disease Hypertension Uterine cancer Thyroid disease Stroke Social History Smoking and tobacco/nicotine status: current every day tobacco/nicotine user Pertinent Exam Findings alert, oriented x 3, clear to auscultation bilaterally and regular rate & rhythm Pertinent Data Pelvic sono 12-19-23 uterus 7.7 x 5.2 x 5.1 cm Endometrium 8 mm; heterogeneous; poss polyps Normal ovaries Recommendations Surgery/Procedure today Coding Level of Care Code Acute Code for Chg Fwd Time Spent (min) 20
[2024-01-25] MEDS: scopolamine 1.5 Patch 1 PATCH TRANSDERMA (08:16)
[2024-01-25] MEDS: sodium chloride 0.9% 1,000 ML 30 ML IV (08:17)
--- NOTE | 2024-01-25 08:17 | ANES.PREANE2 ---
Pre-Anesthetic Assessment Height/Weight: Height 5 ft 1 in Weight 182 lb Temp Pulse Resp BP Pulse Ox O2 Del Method 98.1 F 80 16 113/83 97 Room Air 01/25/24 08:06 01/25/24 08:06 01/25/24 08:06 01/25/24 08:06 01/25/24 08:06 01/25/24 08:06 Preop Diagnosis: abnormal uterine bleeding Operation Date: 01/25/24 09:30 Proposed Procedures p Hysteroscopy Hysteroscopy w/ Endometrial Sampling 56095, 50299(Not Applicable) - Bridger Liang MD s Poylpectomy(Not Applicable) - Bridger Liang MD s Placement of Intrauterine Device(Not Applicable) - Bridger Liang MD Last intake: Intake Last Liquid Date 01/24/24 Last Liquid Time 21:00 Last Solid Date 01/24/24 Last Solid Time 22:00 Social Tobacco recovering alcoholic/drug addict Exam alert and oriented x 3 Diminished breath sounds Airway Submandibular: within normal limits Cervical ROM: within normal limits Mallampati: Class III Dentition: other (Multiple missing teeth, patient denies any loose teeth. Poor dentition) Anesthetic Plan ASA status: 2 Anesthesia: General Other: No prior issues with anesthesia NPO since midnight Current smoker Patient is a recovering alcoholic/drug addict. Requesting minimal opioids. Labs 12/18 reviewed. Hemoglobin 8.1 at that time Patient denies any cardiac history METs greater than 4 Plan for general anesthetic Medications/Allergies Home Medications Medication Instructions Recorded Confirmed Last Taken Type norethindrone 1 mg-ethinyl 1 tab PO DAILY #84 tabs 01/16/24 01/24/24 01/24/24 Rx estradiol 35 mcg tablet Allergies Allergy/AdvReac Type Severity Reaction Status Date / Time No Known Allergies Allergy Verified 01/25/24 08:01 Current Medications Generic Name Dose Route Start Last Admin Trade Name Freq PRN Reason Stop Dose Admin Sodium Chloride 1,000 mls @ 30 mls/hr 01/25/24 08:00 01/25/24 08:17 Sodium Chloride 0.9% IV 01/26/24 07:59 30 mls/hr .Q24H SOFIE Administration PFSH Anesthesia Medical History Psychiatric care Smoker Family History Mother Breast cancer Colon cancer Denies family history of Ovarian cancer Prostate cancer Diabetes Heart disease Hypertension Uterine cancer Thyroid disease Stroke Social History Smoking and tobacco/nicotine status: current every day tobacco/nicotine user Female Reproductive History Date of last menstrual period: 01/24/24 Data Anesthesia Cardiac Studies: No Data to Display
[2024-01-25 09:16] LABS: OR HCG Qualitative Urine Negative (Negative)
--- NOTE | 2024-01-25 09:54 | W.PM.OPSUD ---
Surgery/Procedure H&P Update DATE OF PROCEDURE: January 25, 2024 DATE H&P PERFORMED: 01/24/24 H&P UPDATE INFORMATION: I have reviewed H&P completed within last 30 days, I have examined patient prior to procedure and No changes to prior documentation PREOP DIAGNOSIS: abnormal uterine bleeding PLANNED PROCEDURE: Operation Date: 01/25/24 09:30 Proposed Procedures p Hysteroscopy Hysteroscopy w/ Endometrial Sampling 69817, 89239(Not Applicable) - Bridger Liang MD s Poylpectomy(Not Applicable) - Bridger Liang MD s Placement of Intrauterine Device(Not Applicable) - Bridger Liang MD
--- NOTE | 2024-01-25 11:05 | PM.OP ---
Operative Report Date of procedure: January 25, 2024 Pre-op diagnosis: abnormal uterine bleeding Post-op diagnosis: same Post-op findings: Two small smooth 2 cm endometrial polyps Minimal endometrial tissue Procedure done: hysteroscopy Endometrial sampling and polypectomy with Myosure Placement of mirena intrauterine device Implants: mirena intrauterine device Specimens removed/disposition: endometrial tissue, sent to pathology Surgeon: Bridger Liang MD Anesthesia: MAC Estimated blood loss (mL): 0 Complications: none Findings: Two small smooth 2 cm endometrial polyps Minimal endometrial tissue Brief History: 38 y.o. with abnormal uterine bldding Procedure: Informed consent signed. Patient was taken to the operating room. Anesthesia was induced. Patient was placed in dorsolithotomy position, prepped and draped for hysteroscopy. A bivalve speculum was placed in the vagina. The anterior lip of the cervix was grasped with a sharp-toothed tenaculum. The uterus was sounded to 8 cm. The cervix was serially dilated with Hegar dilators. . A hysteroscope was placed into the endometrial cavity. The endometrial cavity was seen to have two smooth-appearing 2 cm endometrial polyps. There was minimal endometrial tissue. The Myosure device was used to remove the polyps. The endometrial cavity was seen to be intact. The hysteroscope was then removed. The mirena intrauterine device was then prepared, placed into the endometrial cavity and deployed. A 3-4 cm string was left at the cervical os. The sharp-toothed tenaculum was removed. There was no bleeding from the endometrial cavity or cervix. The patient was then placed supine and awakened and taken to the PACU. Postop condition: stable EBL: 0 cc Sponge and instruments counts were normal x 2 Complications: none
--- NOTE | 2024-01-25 12:15 | ANE.PACU2 ---
Inpatient post-anesthesia follow up: Airway intact: Yes Vital signs: Temperature 97.4 F Pulse Rate 73 Respiratory Rate 16 Blood Pressure 144/68 Pulse Oximetry 96 Oxygen Delivery Me thod Room Air Oxygen Flow Rate 6 Fraction of Inspir ed Oxygen Hydration adequate: Yes Nausea and vomiting: No Pain level: 1 Mental status: Baseline
== END 2024-01-25 12:16 | disposition home or self-care (01) ==
PROVIDERS: Visit Provider Obstetrics & Gynecology
PROC: 0UJD8ZZ Inspection of Uterus and Cervix, Via Natural or Artificial Opening Endoscopic (ICD-10-PCS; CPT 58555; principal; 2024-01-25 09:20)
PROC: (CPT 58300; 2024-01-25 09:20)
PROC: (CPT 58300; 2024-01-25 09:20)
DX: N93.9 Abnormal uterine and vaginal bleeding, unspecified (principal)
CPT/HCPCS: 58300; 58558; 81025; 88305; J0131; J1100; J1885; J2371; J2405; J2704; J3010; J3490; J7030

== ENCOUNTER 2024-07-04 09:53 | Observation (INO) | payer BC, MEDICAID, SELFPAY ==
--- NOTE | 2024-06-26 09:28 | ANES.PREANE2 ---
Pre-Anesthetic Assessment Height/Weight: Height 1.55 m Operation Date: 07/04/24 10:55 Proposed Procedures p Total Abdominal Hysterectomy 00658, N93.9(Not Applicable) - Bridger Liang MD Familial anesthetic complications: None Social No alcohol and No tobacco Exam alert, oriented x 3, clear to auscultation bilaterally and regular rate & rhythm Airway Dentition: full (Per patient report, patient was wearing face mask, concealing teeth) CV/HEM Anemia Neuropsych Bipolar and Depression Anesthetic Plan ASA status: 2 Anesthesia: General Risk of > 500 ml blood loss (7ml/kg in children): No Medications/Allergies Home Medications ?Medication ?Instructions ?Recorded ?Confirmed ?Last Taken ?Type levonorgestrel 21 mcg/24 hr (up to intrauterine 01/31/24 04/16/24 Unknown History 8 years) 52 mg intrauterine device (Mirena) Allergies Allergy/AdvReac Type Severity Reaction Status Date / Time No Known Allergies Allergy Verified 06/26/24 09:10 [facility] Anesthesia Medical History Smoker Family History Mother Breast cancer Colon cancer Denies family history of Ovarian cancer Prostate cancer Diabetes Heart disease Hypertension Uterine cancer Thyroid disease Stroke Social History Smoking and tobacco/nicotine status: current every day tobacco/nicotine user Data Anesthesia Cardiac Studies: No Data to Display
--- NOTE | 2024-07-03 21:21 | W.PM.OPSFHP ---
Same Day Surgery H&P Indication for Procedure/HPI DATE OF PROCEDURE: July 04, 2024 CHIEF COMPLAINT/INDICATIONFOR SURGICAL PROCEDURE: heavy and prolonged menstrual periods PREOP DIAGNOSIS: menometrorrhagia PLANNED PROCEDURE: Operation Date: 07/04/24 07:00 Proposed Procedures p Total Abdominal Hysterectomy 92389, N93.9(Not Applicable) - Bridger Liang MD 38 y.o. with long history of menometrorrhagia did not improve with mirena IUD now scheduled for hysterectomy Medications/Allergies* Home Medications ?Medication ?Instructions ?Recorded ?Confirmed ?Type levonorgestrel 21 mcg/24 hr (up to intrauterine 01/31/24 04/16/24 History 8 years) 52 mg intrauterine device (Mirena) Allergies/Adverse Reactions Allergy/AdvReac Type Severity Reaction Status Date / Time No Known Allergies Allergy Verified 06/26/24 09:10 Pertinent History/Comorbid Conditions* Medical History Smoker Family History (Updated 01/16/24 @ 08:32 by Marta Prado LPN) Colon cancer Mother Breast cancer Mother Denies family history of Ovarian cancer Prostate cancer Diabetes Heart disease Hypertension Uterine cancer Thyroid disease Stroke Social History Smoking and tobacco/nicotine status: current every day tobacco/nicotine user Pertinent Exam Findings alert, oriented x 3, clear to auscultation bilaterally and regular rate & rhythm Recommendations Surgery/Procedure today Coding Level of Care Code Acute Code for Chg Fwd Time Spent (min) 20
[2024-07-04] VITALS (17 sets, daily range): BP systolic 81–157; BP diastolic 41–86; PULSE 66–93; RESP 16–17; TEMP 36.1–36.9; O2SAT 93–98; BMI 30.2
--- NOTE | 2024-07-04 06:22 | P.ANESASSM_ITS ---
Pre-Anesthetic Assessment Height/Weight: Height 5 ft 1 in Temp Pulse Resp BP Pulse Ox O2 Del Method 98.1 F 85 17 157/86 98 Room Air 07/04/24 06:16 07/04/24 06:16 07/04/24 06:16 07/04/24 06:16 07/04/24 06:16 07/04/24 06:16 Preop Diagnosis: menometrorrhagia Operation Date: 07/04/24 07:00 Proposed Procedures p Total Abdominal Hysterectomy 16606, N93.9(Not Applicable) - Bridger Liang MD Was Beta Kentrell taken within 24 hours: N/A Was Clonidine taken within 24 hours: N/A Social Tobacco and No alcohol Exam alert, oriented x 3, clear to auscultation bilaterally and regular rate & rhythm Airway Submandibular: within normal limits Cervical ROM: within normal limits Mallampati: Class II Dentition: full Comments: Comments: Poor dentition, denies any loose teeth Anesthetic Plan ASA status: 2 Anesthesia: General Other: No prior issues with anesthesia NPO since yesterday evening Current smoker Patient is a recovering alcoholic/drug addict. Requesting minimal opioids if possible. CBC and type and screen pending Plan for GETA Medications/Allergies Home Medications ?Medication ?Instructions ?Recorded ?Confirmed ?Last Taken ?Type levonorgestrel 21 mcg/24 hr (up to intrauterine 04/16/24 Unknown History 8 years) 52 mg intrauterine device (Mirena) Allergies Allergy/AdvReac Type Severity Reaction Status Date / Time No Known Allergies Allergy Verified 06/26/24 09:10 [facility] Anesthesia Medical History Smoker Family History Mother Breast cancer Colon cancer Denies family history of Ovarian cancer Prostate cancer Diabetes Heart disease Hypertension Uterine cancer Thyroid disease Stroke Social History Smoking and tobacco/nicotine status: current every day tobacco/nicotine user Data Anesthesia Cardiac Studies: No Data to Display
[2024-07-04] MEDS: sodium chloride 0.9% 1,000 ML 30 ML IV (06:44)
--- NOTE | 2024-07-04 06:44 | W.PM.OPSUD ---
Surgery/Procedure H&P Update DATE OF PROCEDURE: July 04, 2024 DATE H&P PERFORMED: 07/03/24 H&P UPDATE INFORMATION: I have reviewed H&P completed within last 30 days, I have examined patient prior to procedure and No changes to prior documentation PREOP DIAGNOSIS: menometrorrhagia PLANNED PROCEDURE: Operation Date: 07/04/24 07:00 Proposed Procedures p Total Abdominal Hysterectomy 79394, N93.9(Not Applicable) - Bridger Liang MD
[2024-07-04 06:49] LABS: OR HCG Qualitative Urine Negative (Negative)
[2024-07-04 07:01] LABS: Hematocrit 36.6 % (36-47); Mean Corpuscular HGB Conc 30.3 g/dL (30-55); Mean Corpuscular Hemoglobin 24.3 pg (27-33); Mean Corpuscular Volume 80.3 fl (85-98); Mean Platelet Volume 9.8 fL (7.4-10.4); Platelet Count 400 10^3/cmm (157-399); Red Blood Count 4.56 10^6/uL (3.85-5.65); Red Cell Distribution Width 17.2 % (12.1-15.1); White Blood Count 6.49 10^3/uL (3.29-11.43)
[2024-07-04 07:15] LABS: Alanine Aminotransferase 8 U/L (0-33); Albumin Level 3.9 g/dL (3.5-5.2); Alkaline Phosphatase 48 U/L (35-105); Anion Gap 17.1 (5-19); Aspartate Amino Transferase 13 U/L (0-32); Blood Urea Nitrogen 11 mg/dL (6-20); Calcium 8.7 mg/dL (8.5-10.5); Carbon Dioxide 22 mmol/L (22-29); Chloride 103 mmol/L (98-107); Creatinine Clr Calc Pharmacy 112.4143; Globulin 3.6 g/dL (1.3-4.6); Glomerular Filtration Rate 110.2 mL/min (90-130); Glucose 99 mg/dL (65-115); Osmolality Calculated 285 mOsm/kg (285-295); Potassium 4.1 mmol/L (3.5-5.1); Sodium 138 mmol/L (136-145); Total Bilirubin 0.2 mg/dL (0.15-1.2); Total Protein 7.5 g/dL (6.6-8.7)
[2024-07-04] MEDS: ceFAZolin 2,000 mg SDV 2000 MG IVP (07:15)
[2024-07-04] MEDS: metroNIDAZOLE IV 500 MG/100 ML PREMIX 100 MG IV (07:20)
[2024-07-04 07:26] LABS: Absolute Eosinophils 0.2 10^3/cmm (0.0-0.7); Absolute Segmented Neutrophil 3.8 10/cmm (1.6-7.1); Eosinophils 3 %; Lymphocytes 29 %; Lymphocytes Absolute 1.9 10^3/cmm (1.2-3.4); Monocytes Absolute 0.6 10^3/cmm (0.1-0.6); Segmented Neutrophils 58 %; Total Cells Counted 100 (0-100)
[2024-07-04 07:27] LABS: Absolute Neutrophil 3.8 10^3/cmm (1.4-6.5); Platelet Estimate Normal (Normal)
--- NOTE | 2024-07-04 09:03 | ANES.PROC ---
Anesthesia Procedures Procedure/Date: 07/04/24 Bilateral TAP block Nerve Block ^: Nerve Block 1: Main Anesthesia: general anesthesia Time Out Performed: Yes Consent: requested by attending/covering physician Nerve block location: other (Bilateral TAP block) Anesthesia monitors applied: pulse oximetry, EKG, BP cuff and oxygen Nerve block position: supine Anesthetic Used: other (Ropivicaine 0.2%) Amount of anesthesia used (mL): 60 Ultrasound used to: recognize landmarks Nerve Stimulator Used?: No Interscalene/Femoral BLK: 4 stimuplex 21 g needle used for position and inplane approach and visualize local anesthetic spread Injection: neg aspiration of heme Patient Tolerated Procedure: well and no complications Complications: none Other Information: US guided
[2024-07-04] MEDS: fentaNYL 50 mcg/mL INJ 2mL IVP (09:38)
--- NOTE | 2024-07-04 10:06 | ANE.PACU2 ---
Inpatient post-anesthesia follow up: Airway intact: Yes Vital signs: Temperature 97.0 F Pulse Rate 80 Respiratory Rate 17 Blood Pressure 103/55 Pulse Oximetry 94 Oxygen Delivery Me thod Room Air Oxygen Flow Rate Fraction of Inspir ed Oxygen Hydration adequate: Yes Nausea and vomiting: No Pain level: 1 Mental status: Baseline
[2024-07-04] MEDS: HYDROcodone-acetaminophen 5-325 mg Tablet PO ×3 (10:26→22:01)
[2024-07-04] MEDS: dextrose 5%-lactated ringers 1,000 ML 125 ML IV (10:26)
--- NOTE | 2024-07-04 10:35 | PM.OP ---
Operative Report Date of procedure: July 04, 2024 Pre-op diagnosis: menometrorrhagia IUD in place Post-op diagnosis: same Post-op findings: normal uterus absent fallopian tubes from a previous tubal ligation normal ovaries complete intrauterine device Procedure done: total abdominal hysterectomy Implants: none Specimens removed/disposition: uterus, sent to pathology Surgeon: Bridger Liang MD Anesthesia: General Estimated blood loss (mL): 25 Complications: none Findings: normal uterus absent fallopian tubes from a previous tubal ligation normal ovaries complete intrauterine device Condition: stable Disposition: floor Brief History: 39 y.o. with mirena IUD in place, continued to have heavy and prolonged menstrual bleeding; h/o c-sections x two Procedure: Informed consent obtained. The patient was taken to the operating room and placed supine on the table. General endotracheal anesthesia was induced. The abdomen was prepped and draped in the usual sterile fashion. A pfannenstiel incision was made and carried down through skin and subcutaneous tissue and fascia. The fascia was sharply incised. The rectus muscles were and the abdomen was entered bluntly in the midline. The pelvic contents were visualized and examined. An Jose-O retractor was placed. The bowels were packed out of the way. The Ligasure device was used throughout for vessel sealing and cutting. The hysterectomy was begun by dividing and ligating the round ligaments bilaterally. The infundibulopelvic ligaments were divided and skeletonized bilaterally. The ovaries were preserved by dividing the uterus from the uteroovarian ligaments. The vesicouterine peritoneal fold was incised in a transverse curvilinear fashion and sharply dissected downward mobilizing the bladder off the lower uterine segment. The uterine vessels were skeletonized and bilaterally divided and ligated. The procedure was carried down on both sides of the uterus until the cardinal uterosacral ligament was reached. The cervix was then incised. The vaginal cuff was identified and the mucosa was from the cervix. In this fashion, the uterus was removed leaving the vaginal cuff. The vaginal cuff was identified and the mucosa was sewn with O-Vicryl. The pelvis was inspected and irrigated. There was no bleeding. The abdominal packs were removed as was the retractor. The fascia was then closed with a continuous stitch of O-Vicryl. The subcutaneous tissue was irrigated and inspected for hemostasis. The skin was then reapproximated using Insorb absorbable subcuticular skin michael. The patient was then placed supine, extubated, and taken to the recovery room. Postoperative condition: stable EBL: 25 cc Complications: none Sponge, needle, instruments counts were correct x two.
[2024-07-04] MEDS: morphine 4 mg/mL SDV 1 mL IVP (12:11)
[2024-07-04] MEDS: ketorolac 30 mg/mL INJ IVP ×2 (15:44→20:39)
[2024-07-04] MEDS: docusate sodium 100 mg Capsule PO (22:01)
[2024-07-05] MEDS: sodium chloride 0.9% 500 ML IV (00:21)
[2024-07-05] MEDS: HYDROcodone-acetaminophen 5-325 mg Tablet PO (02:28)
[2024-07-05] MEDS: ketorolac 30 mg/mL INJ IVP (02:28)
[2024-07-05 05:47] LABS: Hematocrit 28.2 % (36-47); Mean Corpuscular HGB Conc 30.5 g/dL (30-55); Mean Corpuscular Hemoglobin 24.6 pg (27-33); Mean Corpuscular Volume 80.6 fl (85-98); Mean Platelet Volume 9.7 fL (7.4-10.4); Platelet Count 315 10^3/cmm (157-399); Red Cell Distribution Width 17.2 % (12.1-15.1); White Blood Count 10.23 10^3/uL (3.29-11.43)
[2024-07-05 05:50] VITALS: BP 95/52; PULSE 57; RESP 15; TEMP 36.9; O2SAT 98
[2024-07-05] MEDS: ibuprofen 800 mg tablet PO (09:33)
[2024-07-05] MEDS: docusate sodium 100 mg Capsule PO (09:33)
[2024-07-05] MEDS: simethicone 80 mg Chew PO (09:34)
[2024-07-05 09:50] VITALS: BP 100/67; PULSE 68; RESP 15; TEMP 36.9
[2024-07-05 10:00] VITALS: BP 121/74; PULSE 75; RESP 16; TEMP 36.8; O2SAT 96
[2024-07-05 12:30] VITALS: BP 102/79; PULSE 64; RESP 15; TEMP 36.9
[2024-07-05 12:47] VITALS: BP 102/79; PULSE 64; RESP 15; TEMP 36.9; O2SAT 98
== END 2024-07-05 12:47 | disposition home or self-care (01) ==
LOC: OBGYN 09:55
PROVIDERS: Student in an Organized Health Care Education/Training Program; Admitting Provider Obstetrics & Gynecology; Visit Provider Obstetrics & Gynecology
PROC: 0UT90ZZ Resection of Uterus, Open Approach (ICD-10-PCS; CPT 58150; principal; 2024-07-04 07:00)
PROC: 0UPD8HZ Removal of Contraceptive Device from Uterus and Cervix, Via Natural or Artificial Opening Endoscopic (ICD-10-PCS; CPT 58301; 2024-07-04 07:00)
DX: D25.1 Intramural leiomyoma of uterus (principal); N92.1 Excessive and frequent menstruation with irregular cycle; N72 Inflammatory disease of cervix uteri; N80.03 Adenomyosis of the uterus; F17.200 Nicotine dependence, unspecified, uncomplicated; K08.89 Other specified disorders of teeth and supporting structures
CPT/HCPCS: 58150; 36415; 51702; 80053; 81025; 85007; 85027; 86850; 86900; 88307; A4216; G0378; J0131; J0690; J1100; J1885; J2250; J2270; J2405; J2704; J3010; J3490; J7030; J7040; J7121

== ENCOUNTER 2024-08-15 08:32 | Emergency (ER) | payer BC, MEDICAID, SELFPAY ==
[2024-08-15 08:44] VITALS: BP 170/96; PULSE 111; RESP 16; TEMP 36.8; O2SAT 97; BMI 24.5
--- NOTE | 2024-08-15 08:54 | W.ED.RECABL ---
HPI - Recheck/Abnormal Lab/Rx General: Chief Complaint: Recheck/Abnormal Lab/Rx Stated Complaint: pain in surgical area Time Seen by Provider: 08/15/24 08:43 History of Present Illness: 39-year-old female presents emergency room complaining of pain at her incision site. Patient had total abdominal hysterectomy 6 weeks ago. She is back at work. Patient states she has been having significant dry heaves. She is concerned about the incision site. Related Data Previous Rx's ?Medication ?Instructions ?Recorded sulfamethoxazole 800 1 tab PO BID #14 tabs 08/15/24 mg-trimethoprim 160 mg tablet (Bactrim DS) Allergies Allergy/AdvReac Type Severity Reaction Status Date / Time No Known Allergies Allergy Verified 08/09/24 09:05 Review of Systems Const: Denies: fever(s) or chills Card: Denies: chest pain Resp: Denies: dyspnea GI: Reports: abdominal pain, nausea and vomiting : Denies: dysuria, urinary frequency or urinary urgency Musc: Denies: neck pain or back pain Skin/Breast: Denies: rash PFSH ED PFSH: Medical History Smoker Family History Mother Breast cancer Colon cancer Denies family history of Ovarian cancer Prostate cancer Diabetes Heart disease Hypertension Uterine cancer Thyroid disease Stroke Social History Smoking and tobacco/nicotine status: current every day tobacco/nicotine user Physical Exam Const: GENERAL APPEARANCE: cooperative ORIENTATION/CONSCIOUSNESS: Yes awake, Yes oriented to person, Yes oriented to place and Yes oriented to time HENMT: COMMON NORMALS: normocephalic, atraumatic and hearing grossly normal bilaterally HEAD & SCALP: normocephalic and atraumatic Resp: COMMON NORMALS: normal respiratory effort, No retractions, No use of accessory muscles and clear to auscultation bilaterally AUSCULTATION: clear to auscultation bilaterally Cardio: COMMON NORMALS: regular rate, regular rhythm and No murmurs present (Cardio) RATE: regular rate RHYTHM: regular rhythm GI: COMMON NORMALS: Soft to palpation and No hepatosplenomegaly present AUSCULTATION: Yes normoactive bowel sounds PALPATION: Yes Soft to palpation, No Tenderness to palpation present (GI), No Guarding due to palpation present (GI) and Yes No hepatosplenomegaly present OTHER: Examination of the incision site patient has a typical Pfannenstiel incision there is tenderness along the right corner. No peritoneal signs. No palpable incisional hernias with Valsalva maneuver. Extremity: COMMON NORMALS: normal to inspection, capillary refill normal, no clubbing, cyanosis or edema, no calf tenderness and no pedal edema Neuro: SENSORIUM/ORIENTATION: Yes oriented to person, Yes oriented to place and Yes oriented to time Skin: COMMON NORMALS: no rashes or lesions noted GENERAL SKIN EXAM: no rashes or lesions noted Course Vital Signs: Vital signs: Vital Signs Temperature 98.3 F 08/15/24 08:44 Pulse Rate 111 H 08/15/24 08:44 Respiratory Rate 16 08/15/24 08:44 Blood Pressure 170/96 08/15/24 08:44 Pulse Oximetry 97 08/15/24 08:44 Oxygen Delivery Me thod Room Air 08/15/24 08:44 MDM - Recheck/Abnormal Lab/Rx Medical Decision Making Pain in the lateral aspect of the Pfannenstiel incision site no herniation. No signs of infection no fluctuant areas. Mild cystitis picked up on UA. Discharge patient home on oral antibiotics follow-up with her surgeon. Medical Records I reviewed the patient's medical records. Lab Data I reviewed the patient's lab results. 08/15/24 09:19 08/15/24 09:19 Laboratory Results WBC 5.20 10^3/uL (3.29-11.43) 08/15/24 09:19 RBC 4.41 10^6/uL (3.85-5.65) 08/15/24 09:19 Hgb 11.40 g/dL (11.27-16.99) 08/15/24 09:19 Hct 37.1 % (36-47) 08/15/24 09:19 MCV 84.1 fl (85-98) L 08/15/24 09:19 MCH 25.9 pg (27-33) L 08/15/24 09:19 MCHC 30.7 g/dL (30-55) 08/15/24 09:19 RDW 16.5 % (12.1-15.1) H 08/15/24 09:19 Plt Count 453 10^3/cmm (157-399) H 08/15/24 09:19 MPV 9.5 fL (7.4-10.4) 08/15/24 09:19 Neut % (Auto) 52.4 % 08/15/24 09:19 Lymph % (Auto) 33.8 % 08/15/24 09:19 [place] % (Auto) 7.3 % 08/15/24 09:19 Eos % (Auto) 5.0 % 08/15/24 09:19 Baso % (Auto) 1.3 % 08/15/24 09:19 Neut # (Auto) 2.72 10^3/uL (1.8-7.7) 08/15/24 09:19 Lymph # (Auto) 1.8 10^3/uL (0.8-4.8) 08/15/24 09:19 [place] # (Auto) 0.4 10^3/uL (0.2-0.9) 08/15/24 09:19 Eos # (Auto) 0.3 10^3/uL (0.0-0.8) 08/15/24 09:19 Baso # (Auto) 0.1 10^3/uL (0.0-0.1) 08/15/24 09:19 Nucleated RBC % (auto) 0 % 08/15/24 09:19 Nucleated RBCs # 0.0 /100WBC 08/15/24 09:19 Sodium 140 mmol/L (136-145) 08/15/24 09:19 Potassium 4.1 mmol/L (3.5-5.1) 08/15/24 09:19 Chloride 105 mmol/L (98-107) 08/15/24 09:19 Carbon Dioxide 23 mmol/L (22-29) 08/15/24 09:19 Anion Gap 16.1 (5-19) 08/15/24 09:19 BUN 10 mg/dL (6-20) 08/15/24 09:19 Creatinine 0.6 mg/dL (0.5-0.9) 08/15/24 09:19 GFR Calculation 110.2 mL/min (90-130) 08/15/24 09:19 Glucose 116 mg/dL (65-115) H 08/15/24 09:19 Calculated Osmolality 290 mOsm/kg (285-295) 08/15/24 09:19 Calcium 9.0 mg/dL (8.5-10.5) 08/15/24 09:19 Total Bilirubin 0.4 mg/dL (0.15-1.2) 08/15/24 09:19 AST 11 U/L (0-32) 08/15/24 09:19 ALT 7 U/L (0-33) 08/15/24 09:19 Alkaline Phosphatase 51 U/L (35-105) 08/15/24 09:19 Total Protein 7.8 g/dL (6.6-8.7) 08/15/24 09:19 Albumin 4.2 g/dL (3.5-5.2) 08/15/24 09:19 Globulin 3.6 g/dL (1.3-4.6) 08/15/24 09:19 Urine Color Yellow (Yellow) 08/15/24 10:29 Urine Appearance Turbid (CLEAR) A 08/15/24 10:29 Urine pH 6.0 (5-7) 08/15/24 10:29 Ur Specific [place] 1.016 (1.005-1.030) 08/15/24 10:29 Urine Protein Negative (Negative) 08/15/24 10: Urine Glucose (UA) Negative (Normal) 08/15/24 10:29 Urine Ketones Negative (Negative) 08/15/24 10: Urine Blood Negative (Negative) 08/15/24 10: Urine Nitrate Positive (Negative) A 08/15/24 10:29 Urine Bilirubin Negative (Negative) 08/15/24 10: Urine Urobilinogen 1.0 mg/dL (Negative) 08/15/24 10:29 Ur Leukocyte Esterase 1+ (Negative) A 08/15/24 10:29 Urine RBC 0-2 /hpf (0-2) 08/15/24 10:29 Urine WBC 21-50 /hpf (0-5) H 08/15/24 10:29 Ur Squamous Epith Cells 11-20 /hpf (0-5) H 08/15/24 10:29 Amorphous Sediment Not Reportable 08/15/24 10:29 Urine Bacteria 4+ /hpf (NONE) H 08/15/24 10:29 Hyaline Casts 0.40 /lpf 08/15/24 10:29 No radiology studies performed this visit Discharge Plan Discharge Patient Disposition: Home Clinical Impression: Cystitis, Pain at surgical incision Condition: Stable Prescriptions: New sulfamethoxazole-trimethoprim [Bactrim DS] 800-160 mg tablet 1 tab PO BID Qty: 14 0RF Discharge Orders: Discharge ED (Routine); Ordered 08/15/24 Ordered By: Guevara Franklin Patient Instructions: Opioid Safety, Pain Management Activity Restrictions/Additional Instructions: Thank you for choosing [facility] for your healthcare needs today. It is very important that you follow up as instructed or that you return to the Emergency Department should you have concerns or if your condition changes or worsens in any way. You were seen in the emergency room with complaints of pain at the right edge of your incision. There is no signs of a hernia on examination. Your white count is normal laboratory test did show you have a mild bladder infection for which you are prescribed antibiotic 1 twice a day for 1 week follow-up with primary care as needed. 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
[2024-08-15 09:28] LABS: Basophils # 0.1 10^3/uL (0.0-0.1); Basophils % 1.3 %; Eosinophils # 0.3 10^3/uL (0.0-0.8); Hematocrit 37.1 % (36-47); Lymphocytes # 1.8 10^3/uL (0.8-4.8); Lymphocytes % 33.8 %; Mean Corpuscular HGB Conc 30.7 g/dL (30-55); Mean Corpuscular Hemoglobin 25.9 pg (27-33); Mean Corpuscular Volume 84.1 fl (85-98); Mean Platelet Volume 9.5 fL (7.4-10.4); Monocytes # 0.4 10^3/uL (0.2-0.9); Monocytes % 7.3 %; Neutrophils # 2.72 10^3/uL (1.8-7.7); Neutrophils % 52.4 %; Nucleated Red Blood Cells % 0 %; Platelet Count 453 10^3/cmm (157-399); Red Blood Count 4.41 10^6/uL (3.85-5.65); Red Cell Distribution Width 16.5 % (12.1-15.1)
[2024-08-15 09:42] LABS: Alanine Aminotransferase 7 U/L (0-33); Albumin Level 4.2 g/dL (3.5-5.2); Alkaline Phosphatase 51 U/L (35-105); Anion Gap 16.1 (5-19); Aspartate Amino Transferase 11 U/L (0-32); Blood Urea Nitrogen 10 mg/dL (6-20); Carbon Dioxide 23 mmol/L (22-29); Chloride 105 mmol/L (98-107); Globulin 3.6 g/dL (1.3-4.6); Glomerular Filtration Rate 110.2 mL/min (90-130); Glucose 116 mg/dL (65-115); Osmolality Calculated 290 mOsm/kg (285-295); Potassium 4.1 mmol/L (3.5-5.1); Sodium 140 mmol/L (136-145); Total Bilirubin 0.4 mg/dL (0.15-1.2); Total Protein 7.8 g/dL (6.6-8.7)
[2024-08-15 10:53] LABS: Bilirubin Urine Negative (Negative); Blood Urine Negative (Negative); Glucose Urine UA Negative (Normal); Ketones Urine Negative (Negative); Leukocyte Esterase Urine 1+ (Negative); Nitrate Urine Positive (Negative); Protein Urine Negative (Negative); Specific Gravity, Urine 1.016 (1.005-1.030); Urine Appearance Turbid (CLEAR); Urine Color Yellow (Yellow)
[2024-08-15 10:59] LABS: Add Urine Microscopic? YES; Bacteria Urine 4+ /hpf; RBC Urine 0-2 /hpf (0-2); WBC Urine 21-50 /hpf (0-5)
[2024-08-15 11:03] LABS: Add Urine Culture? Yes
== END 2024-08-15 11:26 | disposition home or self-care (01) ==
PROVIDERS: Emergency Provider Family Medicine
DX: N30.90 Cystitis, unspecified without hematuria (principal); G89.18 Other acute postprocedural pain; Z72.0 Tobacco use
CPT/HCPCS: 80053; 81001; 85025; 87077; 87086; 87186; 99283

== ENCOUNTER 2024-11-19 01:06 | Emergency (ER) | payer BC, MEDICAID, SELFPAY ==
[2024-11-19 01:08] VITALS: BP 150/77; PULSE 61; RESP 16; TEMP 36.6; O2SAT 96; BMI 32.6
--- OUTSIDE RECORDS SUMMARY | 2024-11-19 01:14 | XMS_ITS | Data Portability ---
Author Organization [facility] Jose Riddle [facility] Lela Cabezas [facility] Address [address] [address] Assessment No assessment recorded. Plan of Treatment Reminders Order Date Submit Date Provider Last Modified By Organization Details Last Modified Time Details Appointments None recorded. Lab None recorded. Referral None recorded. Procedures None recorded. Surgeries None recorded. Imaging None recorded. Medication Orders Sprintec (28) 0.25 mg-0.035 mg tablet 2023 024 [place] [address] [address] [facility] #[id number], [address], [place], [place], [id number], 4 10:21:12 tranexamic acid 650 mg tablet 2023 024 [place] [facility] #51359, [address], [place], [place], [id number], 4 10:21:41 Sprintec (28) 0.25 mg-0.035 mg tablet 2023 024 [place] [address] [address] [facility] #36596, [address], [place], [place], [id number], 4 10:21:12 Patient TargetsNo targets recorded. Patient InstructionsNo instructions recorded. Reason for Referral None Reported. Problems Name Problem SNOMED Code Status Onset Date Resolution Date Notes Provider Name and Address Organization Details Recorded Time Abnormal uterine bleeding [id number] Active 2023 Chalo Weiss MD [address] [place] [address], [phone], [facility], Lela 4 10:57:50 Problem Notes None recorded. Procedures Surgical History Date Name Laterality Status Provider Name and Address Organization Details Recorded Time Caesarean Section completed Nikki Weber [facility] Jose Shaniqua [facility], Lela 12/19/2023 10:19:11 Imaging Results None recorded. Procedure Notes None recorded. Medical Equipment None Reported. Allergies No known drug allergies Medications Name Sig Start Date Stop Date Status Note LastModified by Organization Details LastModified Time fluoxetin e 40 mg capsule TAKE 1 CAPSULE BY MOUTH DAILY 12/18 completed Not Available Not Available Not Available latanopro st 0.005 % eye drops INSTILL 1 DROP IN EACH EYE AT BEDTIME 12/18 completed Not Available Not Available Not Available trazodone 50 mg tablet TAKE 2 TABLETS BY MOUTH AT BEDTIME NEEDED FOR INSOMNIA 12/18 completed Not Available Not Available Not Available sulfameth oxazole 800 mg-trimet hoprim 160 mg tablet two times daily 12/18 completed for infectio n; Recorded 12/02/19 16 7:00PM by Marco Antonio garcia MD, Office Visit; Refill Quantity : 0; Not Available Not Available Not Available trazodone 100 mg tablet TAKE 2 TABLETS BY MOUTH AT BEDTIME NEEDED FOR INSOMNIA 12/18 completed Not Available Not Available Not Available diclofena c sodium 75 mg tablet,de layed release TAKE 1 TABLET BY MOUTH EVERY 12 HOURS NEEDED FOR PAIN 12/18 completed Not Available Not Available Not Available propranol ol 20 mg tablet TAKE 1 TABLET BY MOUTH TWICE DAILY NEEDED FOR ANXIETY 12/18 completed Not Available Not Available Not Available fluoxetin e 20 mg capsule TAKE 1 CAPSULE BY MOUTH DAILY 12/18 completed Not Available Not Available Not Available amoxicill in 500 mg-potass ium clavulana te 125 mg tablet TAKE 1 TABLET BY MOUTH THREE TIMES DAILY 12/18 completed Not Available Not Available Not Available Sprintec (28) 0.25 mg-0.035 mg tablet Take 1 tablet every day by oral route. 02/08 completed Not Available Not Available Not Available bupropion HCl XL 150 mg 24 hr tablet, extended release TAKE 1 TABLET BY MOUTH EVERY MORNING 12/18 completed Not Available Not Available Not Available tranexami c acid 650 mg tablet Take 2 tablets 3 times a day by oral route for 5 days. 02/08 completed Not Available Not Available Not Available Vitals Date Recorded Body height Body temperature Systolic blood pressure Diastolic blood pressure Provider Name and Address Organization Details Last Updated DateTime 12/19/2023 154.94 cm 98.2 [degF] 118 mm[Hg] 74 mm[Hg] Nikki Weber [facility] 10:15:58 Date Recorded Body height Body mass index (BMI) Body weight Oxygen saturation Oxygen saturation in Arterial blood by Pulse oximetry Heart rate Respiratory rate Body temperature Systolic blood pressure Diastolic blood pressure Provider Name and Address Organization Details Last Updated DateTime 154.94 cm 35.7 kg/m2 74444.9 6 g 98 % 98 % 67 /min 16 /min 98.5 [degF] 128 mm[Hg] 60 mm[Hg] Padmaja Rivas [facility] 09:28:49 Date Recorded Body height Body mass index (BMI) Body weight Oxygen saturation Oxygen saturation in Arterial blood by Pulse oximetry Heart rate Body temperature Systolic blood pressure Diastolic blood pressure Provider Name and Address Organization Details Last Updated DateTime 154.94 cm 34.2 kg/m2 44910.9 2 g 98 % 98 % 91 /min 98.4 [degF] 146 mm[Hg] 82 mm[Hg] Antonieta Beck [facility] 10:23:28 Social History Question Answer Notes LastModified by [email or web address] Details LastModified Time Tobacco Smoking Status Current Every Day Smoker Nikki connor [facility] 12/19/2023 10:18:31 If You Are , What Was Your Level Of Alcohol Consumption Prior To ? None [email or web address] Information not available 12/19/2023 Sex: Unknown Functional Status Question Answer Note LastModified by Organizat ion Details LastModified Time Do you use any illicit or recreational drugs? No [email or web address] Information not available 12/19/2023 What is your level of alcohol consumption? None [email or web address] Information not available 12/19/2023 Mental Status None recorded. Family History Nothing Reported. Medical History No medical history recorded. Gynecological HistoryNo gynecological history recorded. Obstetrics History GPAL:G 0 P 0 0 0 0 Past Encounters Encounter ID Performer Location Encounter Start Date Encounter Closed Date Diagnosis/Indication Diagnosis SNOMED-CT Code Diagnosis ICD10 Code Diagnosis Note [id number] VERONIKA WITT [facility] ([facility]) [address] [place] [phone] 12/19/2023 10:06:47 12/19/2023 11:08:53 Abnormal uterine bleeding [id number] 9100 N93.9 Discussed use of Sprintec. Keep scheduled appt at [facility].If you develop dizziness, sob, or worsening bleeding then f/u in ER [id number] Chalo Weiss MD [facility] ([facility]) [address] [place] [phone] 12/28/2023 09:24:37 12/28/2023 11:37:27 Abnormal uterine bleeding [id number] 9100 N93.9 Will proceed with normal control at this time until seen by women[facility] clinic. Will provide TXA to help stop bleeding [id number] VERONIKA WITT [facility] ([facility]) [address] [place] [phone] 02/09/2024 10:14:26 02/09/2024 14:07:32 Dysmenorrhea [id number] N94.6 [facility] the [facility] and the staff advised they will speak to Dr. Rosales on Monday when he returns to the office to discuss next steps for the patient.VS S. Pt updated to wait for a call from the [facility] on Monday.If you develop increased bleeding where you are going through 1 pad/hour, dizziness, syncope, then f/u in ER Health Concerns Section Related Observation LastModified by Organization Detai ls LastModified Time None Recorded Concern Status LastModified by Organization Details LastModified Time None Recorded Advance Directives Directive None Recorded Payers Insurance Date Sequence Insurance Name Policy Number Policy Hylton Covered Member ID Hylton Member ID Guarantor Name 03/04/2024 [place] [facility] [place] [facility]INSTITUTIONAL ) DONTE Trujillo [id number] Laurie Trujillo 03/04/2024 1 [place] [id number] Laurie Trujillo [id number] Laurie Trujillo 03/08/2024 2 [facility] DONTE Trujillo [id number] Laurie Trujillo Notes Date Note Type Note Provider Name and Address Organization Details Recorded Time 12/19/2023 text/html Vaginal/Vulvar ProblemReported bypatient.Location:[facility] Duration:present for 2-4 weeks Severity:severe Context:not sexually active Associated Symptoms:no vaginal itching; no vaginal irritation; no vaginal pain; no vulvar itching/irritation; no vulvar swelling/erythema; no vulvar pain; no vulvar lesions; no pelvic pain; no dyspareunia; no dysuria; no fever; no abdominal pain; no burning with urination; no abnormal discharge; no vaginal odor; no erythema Walk in patientShe has been having vaginal bleeding for 30 days. She has been to ER twice and health dept, and [facility]. Vaginal US was completed showing uterine polyps. Labs have been completed. Appt scheduled at [facility] end of this month for IUD placement. states she's been having to change her pad about every hour.tubal ligation 2007. VERONIKA WITT [address] [place], [phone], [facility], [place]ela 12/19/2023 11:05:58 12/28/2023 text/html walk in patientpatient is here today for abnormal bleeding, patient said that the control she was on was helping but she is out and needs a refill, [facility] end of this month. Chalo Weiss MD [address] [place], [phone], [facility] 12/28/2023 10:58:03 02/09/2024 text/html walk in ptPt has been having a period since october. Had iud put in on jan [address] rsoales. The past week has had severe cramping. march [address] Rosales. She [facility] and they offered appt on Monday but pt cannot make it due to prior obligations. KEVIN RIOJAS, LETTERER [address] [place], [address], [facility], Lela 02/11/2024 13:52:03 OBGyn Episode No OBEpisode recorded.
--- NOTE | 2024-11-19 01:19 | ECG_ITS ---
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 Measurements Intervals [place] Rate: 62 P: 49 CA: 188 QRS: 46 QRSD: 79 T: 14 QT: 405 QTc: 412 Interpretive Statements SINUS RHYTHM LOW QRS VOLTAGE IN PRECORDIAL LEADS [QRS DEFLECTION < 1.0 mV IN CHEST LEADS] Compared to ECG 12/19/2017 14:04:24 Low QRS voltage now present Sinus tachycardia no longer present Electronically Signed On 11-21-2024 09:06:12 CDT by Harry Scherer M.D. [email or web address]
[2024-11-19 01:21] VITALS: BP 150/77; PULSE 72; O2SAT 93
--- NOTE | 2024-11-19 01:29 | XRR_ITS ---
PROCEDURE INFORMATION: Exam: XR Abdomen Exam date and time: 11/19/2024 1:34 AM Age: 39 years old Clinical indication: Abdominal pain; Prior surgery; Surgery date: 6+ months; Surgery type: Hysterectomy; PT presents to ED C/O pain in R inguinal region worsened by coughing. PT denies knowledge of hernia. TECHNIQUE: Imaging protocol: Radiologic exam of the abdomen. Views: 2 Views. Upright and supine views. COMPARISON: CT abdomen pelvis w con* [id number] 12/15/2023 11:41 AM FINDINGS: Gastrointestinal tract: Normal. No bowel dilation. Intraperitoneal space: Normal. No free air. Bones/joints: Unremarkable for age. XR/XR acute abdomen series [id number] IMPRESSION: No acute findings.
--- NOTE | 2024-11-19 01:39 | W.ED.ABDPA2 ---
HPI - Abdominal Pain General: Chief Complaint: Abdominal Pain Stated Complaint: Sob\Rattle in Chest\Pain in Rt Side Time Seen by Provider: 11/19/24 01:21 History of Present Illness: 39-year-old female with a history of tobacco dependence who presents emergency room with cough and wheeze with right lower quadrant abdominal pain. Says she has been coughing and wheezing for about a week now. She was treated recently for an upper respiratory infection. She says she is quitting smoking. She has a frequent cough. On exam she has quite a bit of wheeze. The thing that prompted her to come to the emergency room today was she also developed the pain in her right lower quadrant when she coughed. Also tender when she moves and with palpation. Related Data Previous Rx's ?Medication ?Instructions ?Recorded sulfamethoxazole 800 1 tab PO BID #14 tabs 08/15/24 mg-trimethoprim 160 mg tablet (Bactrim DS) albuterol sulfate 90 mcg/actuation 2 inh inhalation Q4H PRN shortness 11/19/24 aerosol inhaler of breath or wheezing #6.7 grams azithromycin 250 mg tablet See Rx Instructions PO .COMPLEX #6 11/19/24 (Zithromax Z-Jak) tabs cefdinir 300 mg capsule 300 mg PO BID 5 days #10 caps 11/19/24 prednisone 20 mg tablet 60 mg (3 x 20 mg) PO DAILY 5 days 11/19/24 #15 tabs Allergies Allergy/AdvReac Type Severity Reaction Status Date / Time No Known Allergies Allergy Verified 11/19/24 01:17 Review of Systems Narrative: Constitutional symptoms: Negative except as documented in HPI. Skin symptoms: Negative except as documented in HPI. Eye symptoms: Negative except as documented in HPI. ENMT symptoms: Negative except as documented in HPI. Respiratory symptoms: Negative except as documented in HPI. Cardiovascular symptoms: Negative except as documented in HPI. Gastrointestinal symptoms: Negative except as documented in HPI. Genitourinary symptoms: Negative except as documented in HPI. Musculoskeletal symptoms: Negative except as documented in HPI. Neurologic symptoms: Negative except as documented in HPI. Psychiatric symptoms: Negative except as documented in HPI. Endocrine symptoms: Negative except as documented in HPI. PFSH ED PFSH: Medical History Smoker Surgical History (Updated 09/03/24 @ 22:44 by Bridger Liang MD) History of hysterectomy Family History Mother Breast cancer Colon cancer Denies family history of Ovarian cancer Prostate cancer Diabetes Heart disease Hypertension Uterine cancer Thyroid disease Stroke Social History Smoking and tobacco/nicotine status: current every day tobacco/nicotine user Physical Exam Narrative: EXAM NARRATIVE: General: Alert, no acute distress. Skin: Warm, dry. Head: Normocephalic, atraumatic. Neck: Supple, trachea midline. Eye: Extraocular movements are intact. Ears, nose, mouth and throat: Oral mucosa moist. Cardiovascular: Regular rate and rhythm, Normal peripheral perfusion. Respiratory: coarse, moderate right lower quadrant tenderness to palpation wheeze, mild increased wob. tachypnea, breath sounds are equal, Symmetrical chest wall expansion. Gastrointestinal: Soft, Nontender, Non distended Musculoskeletal: Normal ROM, no deformity. Neurological: Alert and oriented, No focal neurological deficit observed. Psychiatric: Cooperative, appropriate mood & affect. Course Vital Signs: Vital signs: Vital Signs Temperature 97.8 F 11/19/24 01:08 Pulse Rate 80 11/19/24 03:44 Respiratory Rate 17 11/19/24 02:53 Blood Pressure 119/72 11/19/24 03:44 Pulse Oximetry 92 11/19/24 03:44 Oxygen Delivery Me thod Room Air 11/19/24 03:44 MDM - Abdominal Pain Medical Decision Making Differential diagnosis for patient with shortness of breath includes but is not limited to and based on the above HPI, review of systems and physical exam: Pneumonia. Bronchitis. Asthma or COPD with acute exacerbation. Acute coronary syndrome / [place]. Pulmonary embolism. Anxiety. Congestive heart failure. Viral infections including influenza and Covid-19. Atrial fibrillation. Anxiety. Pleural effusion. Pneumothorax. Orders placed to evaluate differential diagnosis based on the above differential, HPI and physical exam Differential diagnosis for this patient with right lower quadrant abdominal pain including but not limited to and based on the above HPI, review of systems and physical exam: Ureterolithiasis. Urinary tract infection. Appendicitis. colitis. small bowel obstruction. Crohn's flare. Pancreatitis. Cholelithiasis or cholecystitis. Hepatitis. Diverticulitis. Constipation. ovarian cyst. ovarian torsion Workup: Orders were placed to evaluate differential diagnosis based on the above differential, HPI and exam: Lab Review: Laboratory results were reviewed and interpreted by myself the emergency room physician. No leukocytosis. No anemia. No renal failure. Urinalysis shows 4+ bacteria with 6-10 whites. This could be the cause of her right-sided abdominal pain as CT shows nothing acute. CT of the abdomen pelvis with contrast: Stable contracted gallbladder. Right atelectasis. This was reviewed and interpreted by myself the emergency room physician. I also reviewed the radiology report. I reviewed the patient's medical record. Reexamination: Patient remained stable. No increased work of breathing. No altered mental status. No focal motor deficits. Some improvement in wheeze. Assessment and plan: Bronchitis Urinary tract infection Tobacco dependence ?Rocephin, Solu-Medrol and an updraft in the emergency room. - Discharged home - Discussed findings and plan with patient. Answered any questions. - All laboratory values were reviewed and interpreted personally by myself, the ER physician - All imaging was reviewed and interpreted personally by myself, the ER physician. - Evaluation and treatment of this problem were appropriate in the emergency setting Lab Data 11/19/24 01:50 11/19/24 01:50 Labs/Radiology: Radiology Impressions Chest/Abdomen X-ray 11/19/24 01:29 IMPRESSION: No acute findings. Abdomen/Pelvis CT 11/19/24 02:32 IMPRESSION: 1. Stable contracted gallbladder with apparent diffuse wall thickening. Consider follow-up gallbladder ultrasound if indicated. 2. Mild dependent airspace disease in the left lower lobe, likely atelectasis. COMMENTS: Consistent with the [place] [employer]'s Incidental Findings Committee white paper (J Am Elba Radiol 2018): Any incidental renal lesion less than 1 cm or classified as too small to characterize, or any incidental cystic renal lesion characterized as simple-appearing, is likely benign. No follow-up imaging is recommended for these lesions per consensus recommendations based on imaging criteria. Laboratory Results WBC 8.09 10^3/uL (3.29-11.43) 11/19/24 01:50 RBC 4.40 10^6/uL (3.85-5.65) 11/19/24 01:50 Hgb 13.00 g/dL (11.27-16.99) 11/19/24 01:50 Hct 40.4 % (36-47) 11/19/24 01:50 MCV 91.8 fl (85-98) 11/19/24 01:50 MCH 29.5 pg (27-33) 11/19/24 01:50 MCHC 32.2 g/dL (30-55) 11/19/24 01:50 RDW 15.0 % (12.1-15.1) 11/19/24 01:50 Plt Count 363 10^3/cmm (157-399) 11/19/24 01:50 MPV 9.2 fL (7.4-10.4) 11/19/24 01:50 Neut % (Auto) 54.3 % 11/19/24 01:50 Lymph % (Auto) 33.0 % 11/19/24 01:50 [place] % (Auto) 7.3 % 11/19/24 01:50 Eos % (Auto) 4.1 % 11/19/24 01:50 Baso % (Auto) 1.1 % 11/19/24 01:50 Neut # (Auto) 4.39 10^3/uL (1.8-7.7) 11/19/24 01:50 Lymph # (Auto) 2.7 10^3/uL (0.8-4.8) 11/19/24 01:50 [place] # (Auto) 0.6 10^3/uL (0.2-0.9) 11/19/24 01:50 Eos # (Auto) 0.3 10^3/uL (0.0-0.8) 11/19/24 01:50 Baso # (Auto) 0.1 10^3/uL (0.0-0.1) 11/19/24 01:50 Nucleated RBC % (auto) 0 % 11/19/24 01:50 Nucleated RBCs # 0.0 /100WBC 11/19/24 01:50 Sodium 141 mmol/L (136-145) 11/19/24 01:50 Potassium 3.7 mmol/L (3.5-5.1) 11/19/24 01:50 Chloride 104 mmol/L (98-107) 11/19/24 01:50 Carbon Dioxide 27 mmol/L (22-29) 11/19/24 01:50 Anion Gap 13.7 (5-19) 11/19/24 01:50 BUN 11 mg/dL (6-20) 11/19/24 01:50 Creatinine 0.8 mg/dL (0.5-0.9) 11/19/24 01:50 GFR Calculation 79.0 mL/min (90-130) L 11/19/24 01:50 Glucose 87 mg/dL (65-115) 11/19/24 01:50 Calculated Osmolality 291 mOsm/kg (285-295) 11/19/24 01:50 Lactic Acid 0.9 mmol/L (0.5-2.2) 11/19/24 01:50 Calcium 9.1 mg/dL (8.5-10.5) 11/19/24 01:50 Total Bilirubin 0.3 mg/dL (0.15-1.2) 11/19/24 01:50 AST 13 U/L (0-32) 11/19/24 01:50 ALT 10 U/L (0-33) 11/19/24 01:50 Alkaline Phosphatase 63 U/L (35-105) 11/19/24 01:50 C-Reactive Protein 3.0 mg/L (0.0-4.9) 11/19/24 01:50 Total Protein 7.3 g/dL (6.6-8.7) 11/19/24 01:50 Albumin 3.8 g/dL (3.5-5.2) 11/19/24 01:50 Globulin 3.5 g/dL (1.3-4.6) 11/19/24 01:50 HCG, Qual Negative (Negative) 11/19/24 01:50 Urine Color Yellow (Yellow) 11/19/24 01:35 Urine Appearance Cloudy (CLEAR) A 11/19/24 01:35 Urine pH 6.0 (5-7) 11/19/24 01:35 Ur Specific [place] 1.028 (1.005-1.030) 11/19/24 01:35 Urine Protein Negative (Negative) 11/19/24 01:35 Urine Glucose (UA) Negative (Normal) 11/19/24 01:35 Urine Ketones Trace (Negative) 11/19/24 01:35 Urine Blood Negative (Negative) 11/19/24 01:35 Urine Nitrate Positive (Negative) A 11/19/24 01:35 Urine Bilirubin Negative (Negative) 11/19/24 01:35 Urine Urobilinogen 1.0 mg/dL (Negative) 11/19/24 01:35 Ur Leukocyte Esterase Negative (Negative) 11/19/24 01:35 Urine RBC 0-2 /hpf (0-2) 11/19/24 01:35 Urine WBC 6-10 /hpf (0-5) 11/19/24 01:35 Ur Squamous Epith Cells 11-20 /hpf (0-5) H 11/19/24 01:35 Amorphous Sediment Not Reportable 11/19/24 01:35 Urine Bacteria 4+ /hpf (NONE) H 11/19/24 01:35 Hyaline Casts 0-4 /lpf H 11/19/24 01:35 Influenza A (PCR) Negative (Negative) 11/19/24 01:35 Influenza Type B (PCR) Negative (Negative) 11/19/24 01:35 RSV (PCR) Negative (Negative) 11/19/24 01:35 SARS-CoV-2 (PCR) Negative (Negative) 11/19/24 01:35 All radiology interpretation(s) finalized by discharge Discharge Plan Discharge Patient Disposition: Home Clinical Impression: Bronchitis, Urinary tract infection Condition: Stable Prescriptions: New azithromycin [Zithromax Z-Jak] 250 mg tablet See Rx Instructions .ROUTE .COMPLEX Qty: 6 0RF Rx Instructions: For 250 mg dose pack: take 500 mg today (day 1), then 250 mg for 4 days (days 2-5) prednisone 20 mg tablet 60 mg PO DAILY 5 Days Qty: 15 0RF albuterol sulfate 90 mcg/actuation HFA aerosol inhaler 2 inh inhalation Q4H PRN (Reason: shortness of breath or wheezing) Qty: 6.7 0RF Rx Instructions: Please provide patient with a spacer cefdinir 300 mg capsule 300 mg PO BID 5 Days Qty: 10 0RF No Action sulfamethoxazole-trimethoprim [Bactrim DS] 800-160 mg tablet 1 tab PO BID Qty: 14 0RF Discharge Orders: Discharge ED (Routine); Ordered 11/19/24 Ordered By: Emma Mendez Discharge Diet: Usual diet Discharge Activity: Increase activity as tolerated Patient Instructions: How to Use a Metered-Dose Inhaler and a Spacer (ED), Opioid Safety, Pain Management, Patient Portal & Nancy Instructions Activity Restrictions/Additional Instructions: Thank you for choosing [facility] for your healthcare needs today. You have been screened and evaluated and felt safe for discharge. Health conditions do change or evolve sometimes and as such it is important that you follow up with your Primary Doctor to be re checked, 3-5 days is a general good time frame for follow up. You are always welcome to return to the ED for re assessment if your symptoms are worsening or you have new concerns Print Language: Malaysian Coding Level of Care Code ED Auditor Medical Claims for Felix [place]
[2024-11-19 01:55] LABS: Glucose Urine UA Negative (Normal); Nitrate Urine Positive (Negative); Specific Gravity, Urine 1.028 (1.005-1.030)
[2024-11-19] MEDS: methylPREDNISolone sod succ 125 mg/2 mL INJ IVP (02:16)
[2024-11-19 02:22] LABS: Hematocrit 40.4 % (36-47); Hemoglobin 13.00 g/dL (11.27-16.99); Mean Corpuscular HGB Conc 32.2 g/dL (30-55); Mean Corpuscular Hemoglobin 29.5 pg (27-33); Mean Corpuscular Volume 91.8 fl (85-98); Nucleated Red Blood Cells % 0 %; Platelet Count 363 10^3/cmm (157-399); Red Blood Count 4.40 10^6/uL (3.85-5.65); White Blood Count 8.09 10^3/uL (3.29-11.43)
[2024-11-19 02:31] LABS: Respiratory Syncytial Virus Ce NEGATIVE (Negative); SARS-CoV-2 PCR NEGATIVE (Negative)
--- NOTE | 2024-11-19 02:32 | CTR_ITS ---
PROCEDURE INFORMATION: Exam: CT Abdomen And Pelvis With Contrast Exam date and time: 11/19/2024 3:05 AM Age: 39 years old Clinical indication: Abdominal pain; Other: Right sided TECHNIQUE: Imaging protocol: Computed tomography of the abdomen and pelvis with contrast. Radiation optimization: All CT scans at this facility use at least one of these dose optimization techniques: automated exposure control; mA and/or kV adjustment per patient size (includes targeted exams where dose is matched to clinical indication); or iterative reconstruction. Contrast material: OMNI 350; Contrast volume: 100 ml; Contrast route: INTRAVENOUS (IV); COMPARISON: CT abdomen pelvis w con* [id number] 12/15/2023 11:41 AM RADIATION DOSE METRICS: Total DLP (mGy-cm): 651.64 FINDINGS: Lungs: Mild dependent airspace disease in the left lower lobe, likely atelectasis. Liver: Normal. No mass. Gallbladder and biliary ducts: Stable contracted gallbladder with apparent diffuse wall thickening. Pancreas: Normal. No ductal dilation. Spleen: Normal. No splenomegaly. Adrenal glands: Normal. No mass. Kidneys and ureters: Nonspecific low-density foci of the kidneys statistically favor benign cysts, no follow-up imaging is recommended, as large as 9 mm. No hydronephrosis. Stomach and bowel: Unremarkable. No obstruction. No mucosal thickening. Appendix: No evidence of appendicitis. Intraperitoneal space: Unremarkable. No free air. No significant fluid collection. Vasculature: Unremarkable. No abdominal aortic aneurysm. Lymph nodes: Unremarkable. No enlarged lymph nodes. Urinary bladder: Unremarkable as visualized. Reproductive: Unremarkable as visualized. Bones/joints: Chronic grade 1 spondylolytic spondylolisthesis L5-S1. No acute or suspicious osseous abnormality. Soft tissues: Unremarkable. CT/CT abdomen pelvis w con* [id number] IMPRESSION: 1. Stable contracted gallbladder with apparent diffuse wall thickening. Consider follow-up gallbladder ultrasound if indicated. 2. Mild dependent airspace disease in the left lower lobe, likely atelectasis. COMMENTS: Consistent with the [employer]'s Incidental Findings Committee white paper (J Am Elba Radiol 2018): Any incidental renal lesion less than 1 cm or classified as too small to characterize, or any incidental cystic renal lesion characterized as simple-appearing, is likely benign. No follow-up imaging is recommended for these lesions per consensus recommendations based on imaging criteria.
[2024-11-19 02:40] LABS: HCG, Serum Qual Negative (Negative)
[2024-11-19 02:46] LABS: Alanine Aminotransferase 10 U/L (0-33); Albumin Level 3.8 g/dL (3.5-5.2); Alkaline Phosphatase 63 U/L (35-105); Anion Gap 13.7 (5-19); Aspartate Amino Transferase 13 U/L (0-32); Blood Urea Nitrogen 11 mg/dL (6-20); Calcium 9.1 mg/dL (8.5-10.5); Carbon Dioxide 27 mmol/L (22-29); Chloride 104 mmol/L (98-107); Creatinine Clr Calc Pharmacy 87.7562; Globulin 3.5 g/dL (1.3-4.6); Glucose 87 mg/dL (65-115); Lactic Sepsis W/Reflex 0.9 mmol/L (0.5-2.2); Osmolality Calculated 291 mOsm/kg (285-295); Potassium 3.7 mmol/L (3.5-5.1); Sodium 141 mmol/L (136-145); Total Protein 7.3 g/dL (6.6-8.7)
[2024-11-19 02:53] VITALS: PULSE 75; RESP 17; O2SAT 95
[2024-11-19 03:00] VITALS: PULSE 81
[2024-11-19] MEDS: iohexol 350 mg/mL 500 mL Btl (per mL) IV (03:07)
[2024-11-19] MEDS: cefTRIAXone 1,000 mg SDV 1000 MG IVP (03:15)
[2024-11-19 03:44] VITALS: BP 119/72; PULSE 80; O2SAT 92
[2024-11-19 04:36] VITALS: BP 119/72; PULSE 72; O2SAT 91
== END 2024-11-19 04:48 | disposition home or self-care (01) ==
PROVIDERS: Emergency Provider Emergency Medicine
DX: J40 Bronchitis, not specified as acute or chronic (principal); N39.0 Urinary tract infection, site not specified; Z11.52 Encounter for screening for COVID-19; Z72.0 Tobacco use
CPT/HCPCS: 74022; 74177; 80053; 81001; 83605; 84703; 85025; 86140; 87637; 93005; 94640; 96374; 96375; 99285; J0696; J2919; J9999